=== PATIENT | male | born 1945 | race Caucasian/White ===

== ENCOUNTER → 2017-06-16 | Outpatient (CLI) | payer OTHER ==
[~2017-06-16] MED LIST: CALC1TAB25 PO; CIPR250T3 PO; CRS/10 PO; GLC/500 PO; OXYC7.5T65 PO; PHEN-775 PO; PRLSR20 PO; RIVA1TAB4 PO; SLIPPERY ELM PO; SULF800T23 PO; TAMS0.4C38 PO; XRL15 PO
--- NOTE | 2017-06-16 16:32 | DIAGNOSTIC IMAGING REPORT ---
KUB CLINICAL HISTORY: 71 years-old Male presenting with CALCULUS OF KIDNEY, left flank pain. TECHNIQUE: Single supine view of the abdomen was obtained. COMPARISON: None. FINDINGS: No convincing evidence of calcifications project over the renal collecting systems or ureters, limited by bowel gas and residual dense material in the colon. Few phleboliths noted in the left hemipelvis. Mild gaseous distention of small bowel in the epigastrium and left mid abdomen. No free evidence of bowel obstruction. No evidence of free intraperitoneal gas, pneumatosis, or portal venous gas. Osseous structures normal. IMPRESSION: 1. No convincing evidence of nephrolithiasis. If there is continuing clinical concern, further evaluation with CT could be obtained. 2. Mild gaseous distention of small bowel in the left upper quadrant. No jonathon evidence of bowel obstruction. Electronically signed by: Gordo Schwartz M.D. 06/16/2017 4:31 PM Dictated Date/Time: 06/16/2017 4:28 PM
== END | disposition home or self-care (01) ==
LOC: C.RAD 16:05
PROVIDERS: ATTEND Urology
DX: N20.0 Calculus of kidney (principal)

== ENCOUNTER → 2017-06-17 | Outpatient (CLI) | payer OTHER ==
--- NOTE | 2017-06-17 11:10 | DIAGNOSTIC IMAGING REPORT ---
RENAL ULTRASOUND HISTORY: Kidney stones. Left flank pain. COMPARISON: KUB 06/16/2017. FINDINGS: Right kidney: 11.8 cm. No hydronephrosis. Mild cortical thinning, likely age-related. A 1 cm cyst within the interpolar region. Left kidney: 11.9 cm. Mild to moderate hydronephrosis. There is a 7 mm echogenic focus near the left ureteropelvic junction. This is suboptimally assessed due to the overlying bowel gas but could represent an obstructing stone. Bladder: No bladder wall thickening. The left ureteral jet was not identified. IMPRESSION: 1. Mild to moderate left-sided hydronephrosis. A 7 mm echogenic focus near the left ureteropelvic junction. This is suboptimally assessed due to overlying bowel gas but could represent an obstructing stone. 2. A 1 cm right renal cyst. Electronically signed by: Jose Eduardo Contreras M.D. 06/17/2017 11:09 AM Dictated Date/Time: 06/17/2017 11:06 AM
== END | disposition home or self-care (01) ==
LOC: C.ULTRBC 10:01
PROVIDERS: ATTEND Urology
DX: N20.0 Calculus of kidney (principal); N13.30 Unspecified hydronephrosis; N28.1 Cyst of kidney, acquired

== ENCOUNTER 2017-06-18 09:16 | Day surgery (SDC) | payer OTHER ==
[2017-06-17 14:27] VITALS: BMI 29.0
[~2017-06-18] VITALS: Ht 172.7 cm; Wt 87.3 kg
[~2017-06-18 09:16] MED LIST changes: -CIPR250T3 PO; +CIPROFLOXACIN / D5W 400 MG IV SCH; +CIPROFLOXACIN 200MG / D5W IV SCH; +PATIENT'S ALLERGY INFO NEEDS ENTERED SCH; -PHEN-775 PO; -RIVA1TAB4 PO; +SODIUM CHLORIDE 0.9% 1000ML 1,000 ML IV SCH; -SULF800T23 PO; -TAMS0.4C38 PO; -XRL15 PO
[2017-06-18] MEDS ORDERED: TAMS0.4C38 PO (09:35)
[2017-06-18 09:36] VITALS: BP 146/95; PULSE 103; TEMP 36.8; O2SAT 96; Ht 172.7 cm; Wt 87.3 kg
--- NOTE | 2017-06-18 09:36 | History & Physical Bridge Note ---
H&P Re-Evaluation Bridge Note: I have examined the patient, reviewed the History & Physical and in the interval since the performance of the History & Physical I have noted the following changes of clinical significance: No changes noted Suspected left ureteral calculus/obstruction. Plan for cystoscopy, ureteroscopy /possible laser litho, stent.
[2017-06-18] MEDS ORDERED: FENTANYL CITRATE INJ 50 MCG/1 ML 2 ML VIAL IV PRN (09:45)
[2017-06-18] MEDS ORDERED: EpHEDrine SULFATE INJ 50 MG/ML AMP IV PRN (09:45)
[2017-06-18] MEDS ORDERED: ATROPINE SULFATE 0.1 MG/ML 5ML SYR IV PRN (09:45)
[2017-06-18] MEDS ORDERED: ONDANSETRON INJ 2 MG/ML 2 ML VIAL IV PRN (09:45)
[2017-06-18] MEDS ORDERED: CONRAY 30% 150ML BOTTLE ONE (10:33)
[2017-06-18] MEDS ORDERED: MIDAZOLAM HCL 1 MG/ML 2ML VIAL ONE (11:08)
[2017-06-18] MEDS ORDERED: VASOPRESSIN 20 UNIT/ML VIAL ONE (11:08)
[2017-06-18] MEDS ORDERED: FENTANYL CITRATE INJ 50 MCG/1 ML 2 ML VIAL ONE (11:08)
[2017-06-18] MEDS ORDERED: PROPOFOL IV EMULSION 10 MG/ML 20 ML VIAL IV ONE (11:08)
[2017-06-18] MEDS ORDERED: PHENYLEPHRINE 100MCG/ML 5ML SYR ONE (11:08)
[2017-06-18] MEDS ORDERED: LIDOCAINE HCL 2% 2 ML VIAL (20MG/ML) ONE (11:08)
[2017-06-18] MEDS ORDERED: ESMOLOL HCL 10 MG/ML 10 ML VIAL ONE (11:10)
[2017-06-18] MEDS ORDERED: SULF800T23 PO (11:16)
[2017-06-18] MEDS ORDERED: PHEN-775 PO (11:16)
[2017-06-18] MEDS ORDERED: OXYC7.5T65 PO (11:16)
[2017-06-18] MEDS ORDERED: SODIUM CHLORIDE 0.9% 1000ML 1,000 ML IV SCH (11:16)
--- NOTE | 2017-06-18 11:16 | Discharge Instructions ---
Discharge Instructions Date of Service Jun 18, 2017. Admission Reason for Admission: Stones Discharge Discharge Diagnosis / Problem: stone Discharge Goals Goal(s): Decrease discomfort, Increase independence, Improve disease control, Prevent Disease Progression Activity Recommendations Activity Limitations: resume your previous activity Lifting Limitations: none Exercise/Sports Limitations: none May Resume Sexual Activity: when tolerated Shower/Bathe: no limitations Driving or Machine Use: resume 1 day after discharge . Instructions / Follow-Up Instructions / Follow-Up Please keep your previously scheduled follow-up appointment for stent removal Discharge Diet Recommended Diet: Regular Diet Pending Studies Studies pending at discharge: no Medical Emergencies . Who to Call and When: Medical Emergencies: If at any time you feel your situation is an emergency, please call 911 immediately. . Non-Emergent Contact Non-Emergency issues call your: Urologist Call Non-Emergent contact if: you have a fever, temperature is above 101.5, your pain is not controlled, your pain is worsening . . "Provider Documentation" section prepared by Shadi Rod. . VTE Core Measure Inpt VTE Proph given/why not?: Treatment not indicated
--- NOTE | 2017-06-18 11:22 | [facility] Operative Report ---
Operative Report Operative Date Jun 18, 2017. Pre-Operative Diagnosis Left hydronephrosis;left ureteral stone Post-Operative Diagnosis Left hydronephrosis: Left ureteral stone Procedure(s) Performed Cystoscopy, left ureteroscopy, left laser lithotripsy, left ureteral stent Surgeon Prema Boyer Toe Puller Surgeon(s) non Estimated Blood Loss 2 mL Findings Left distal ureteral calculus Drains [id number] Anesthesia Gen. Complication(s) None Disposition Recovery Room / PACU (stable) Indications Symptomatically ureteral stone with renal failure and hydronephrosis Description of Procedure Clemente Clarke was identified in the preoperative holding area appropriate informed consents were reviewed and completed and the patient was transported to the operating suite. Upon arrival he received appropriate preoperative antibiotics in the form of ciprofloxacin. Adequate general anesthesia was achieved, the patient was placed in dorsal lithotomy position where he was sterilely prepped and draped in standard fashion. Beginning the procedure by passing a 22 Nigerien cystoscope with 30 lens. He was noted to have no urethral strictures but a moderately enlarged prostate. Full inspection of the bladder was carried out, no lesions or stones were identified. Ureteral orifices weren' t orthotopic position. I turned my attention to the left ureteral orifice. I passed a 10 Nigerien double -lumen catheter and a sensor wire. There was moderate resistance in the extreme distal ureter to the passage of the wire however I was able to manipulate this beyond this restriction. Before advancing the 10 Nigerien double- lumen catheter I performed a retrograde pyelogram identifying hydronephrosis extending to the level of the bladder. There were no radio opaque stones visualized. I then passed a second wire through the second port of the double- lumen catheter. Utilizing one wire as a safety wire advanced the flexible ureteroscope over the other wire. A full renoscopy was carried out. There were no stones visualized within the kidney. I performed a careful exit ureteroscopy. I did counter stone in the extreme distal ureter. There was mild inflammation the ureter no other evidence of stones or trauma. I reentered the bladder with a semirigid ureteroscope and guided this into the distal left ureter. A yellow-appearing stone was seen distal ureter. I passed a 400 laser fiber and fragment of the stone. I irrigated his medications out of the ureter is possible. I thought I saw small piece move retrograde towards the kidney. Chased after this with the scope and I was able to advance my scope to the level of the UPJ. I could not see the stone at that level. I'm uncertain of this piece to truly move into the kidney or not there is a possibility for small fragments within the kidney. As I withdrew the scope I confirmed no other stones within the ureter. Utilizing the existing safety wire I placed a 6 Nigerien by 26 synovator double-J ureteral stent. There is a good curl within the kidney as well as the bladder. The bladder was decompressed and the case concluded. Patient was extubated and taken to the PACU in stable condition. I attest to the content of the Intraoperative Record and any orders documented therein. Any exceptions are noted below.
--- NOTE | 2017-06-18 11:22 | DIAGNOSTIC IMAGING REPORT ---
INTRAOPERATIVE RADIOGRAPH CLINICAL HISTORY: Left-sided lithotripsy and stent placement. Fluoroscopy time: 26 seconds. FINDINGS: 4 spot fluoroscopic views of the left abdomen from a ureteral stent placement procedure are presented. Correlation is made with renal ultrasound dated 06/17/2017. Left-sided hydronephrosis is observed. The final image shows the proximal end of a left ureteral stent being deployed. IMPRESSION: Intraoperative images from a left ureteral lithotripsy procedure and stent placement. See operative report for detailed findings. Electronically signed by: Jefferson Haney M.D. 06/18/2017 11:21 AM Dictated Date/Time: 06/18/2017 11:20 AM
[2017-06-18] MEDS ORDERED: OXYCODONE/ACETAMINOPHEN 5-325 TAB PO PRN ×2 (11:30)
[2017-06-18 12:05] VITALS: BP 147/88; PULSE 95; TEMP 36.8; O2SAT 96
[2017-06-18 12:35] VITALS: BP 158/97; PULSE 104; O2SAT 96
--- NOTE | 2017-06-18 12:53 | Anesthesiology Progress Note ---
Anesthesia Post Op Note Date & Time Jun 18, 2017 at 12:53 Vital Signs Pain Intensity: 0 Vital Signs Past 12 Hours Date Time Temp Pulse Resp B/P (MAP) Pulse Ox O2 Delivery O2 Flow Rate FiO2 06/18/17 12:35 104 16 158/97 96 Room Air 06/18/17 12:05 36.8 95 16 147/88 96 Room Air 06/18/17 12:00 92 13 141/90 96 Room Air 06/18/17 11:50 36.5 90 14 142/92 97 Room Air 06/18/17 11:40 90 20 146/89 100 Oxymask 3 06/18/17 11:30 100 16 137/89 99 Oxymask 10 06/18/17 11:21 36.4 94 16 131/91 97 Oxymask 10 06/18/17 09:36 36.8 103 20 146/95 (112) 96 Room Air Notes Mental Status: alert / awake / arousable, participated in evaluation Pt Amnestic to Procedure: Yes Nausea / Vomiting: adequately controlled Pain: adequately controlled Airway Patency, RR, SpO2: stable & adequate BP & HR: stable & adequate Hydration State: stable & adequate Anesthetic Complications: no major complications apparent
[2017-06-18 13:06] VITALS: BP 159/95; PULSE 105; O2SAT 98
[2017-06-18 13:35] VITALS: BP 159/95; PULSE 115; TEMP 36.3; O2SAT 95
[2017-06-26] MEDS ORDERED: XRL15 PO (10:01)
[2017-06-26] MEDS ORDERED: CIPR250T3 PO (10:01)
[2017-06-26] MEDS ORDERED: RIVA1TAB4 PO (10:01)
== END 2017-06-18 12:57 | disposition home or self-care (01) ==
LOC: C.ACU 09:16
PROVIDERS: ATTEND Urology
DX: N13.2 Hydronephrosis with renal and ureteral calculous obstruction (principal); Z85.828 Personal history of other malignant neoplasm of skin; Z80.3 Family history of malignant neoplasm of breast; Z82.49 Family history of ischemic heart disease and other diseases of the circulatory system; Z83.3 Family history of diabetes mellitus; Z84.1 Family history of disorders of kidney and ureter; E11.9 Type 2 diabetes mellitus without complications; K21.9 Gastro-esophageal reflux disease without esophagitis; K44.9 Diaphragmatic hernia without obstruction or gangrene; Z90.5 Acquired absence of kidney; Z87.442 Personal history of urinary calculi; E78.00 Pure hypercholesterolemia, unspecified

== ENCOUNTER 2017-06-24 01:04 | Inpatient (IN) | payer OTHER ==
[~2017-06-24] VITALS: Ht 172.7 cm; Wt 83.7 kg
[2017-06-24] VITALS (8 sets, daily range): BP systolic 126–154; BP diastolic 75–96; PULSE 92–130; TEMP 36.5–37.7; O2SAT 93–96; Ht 172.7 cm; Wt 83.7 kg
[~2017-06-24 01:04] MED LIST changes: -CIPROFLOXACIN / D5W 400 MG IV SCH; -CIPROFLOXACIN 200MG / D5W IV SCH; -PATIENT'S ALLERGY INFO NEEDS ENTERED SCH; +PHEN-775 PO; -SODIUM CHLORIDE 0.9% 1000ML 1,000 ML IV SCH; +SULF800T23 PO; +TAMS0.4C38 PO
[2017-06-24] MEDS ORDERED: ALUMINUM/MAGNESIUM/SIMETH (MAALOX MAX) 30 ML UDC PO PRN (03:15)
[2017-06-24] MEDS ORDERED: POLYETHYLENE (MIRALAX) 17 GM PACK PO PRN (03:15)
[2017-06-24] MEDS ORDERED: MAGNESIUM HYDROXIDE SUSP 30 ML UDC PO PRN (03:15)
--- NOTE | 2017-06-24 03:25 | History and Physical ---
History & Physical Date & Time of Service: Jun 24, 2017 at 03:21 Chief Complaint: Urosepsis Primary Care Physician: Carlos Reaves D.O. History of Present Illness Source: patient, spouse Mr Clarke is a 71 yo diabetic male, with hx of kidney stones, most recently on June 18, and he is s/p lithotripsy w/Dr Boyer, done in the surgical center. He went home from his procedure and took 3 doses of the Bactrim he was prescribed, and then started feeling chills and fevers. His highest temp was 102F. He hasn't been eating well over the last two days either. He presented to [facility]. At [place], he was found to be tachycardic. He had blood cultures drawn and was placed on Rocephin. He was given IV fluids. He was transferred here and arrived 3AM. Past Medical/Surgical History PMHx: Ureterlithiasis Urinary calculi Renal failure Renal colic Diverticulitis DM Hx of kidney stones PSHx: Colon resection Cystoscopy Left eyelid to BCC Multiple negative prostate biopsies Family History No pertinent FHx Social History Smoking Status: Never Smoker Smokeless Tobacco Use: No Alcohol Use: none Drug Use: none Marital Status: Housing status: lives with family Occupational Status: retired Immunizations History of Influenza Vaccine: Unknown History of Tetanus Vaccine?: Unknown History of Pneumococcal: Unknown History of Hepatitis B Vaccine: Unknown Multi-Drug Resistant Organisms History of MDRO: No Allergies Coded Allergies: No Known Allergies (Unverified , 06/18/17) Home Medications Scheduled Calcium W/ Magnesium (Calcium Magnesium 750), 1 TAB PO QAM Metformin Hcl (Glucophage), 500 MG PO QPM Omeprazole (Prilosec), 20 MG PO PRN Phenazopyridine Hcl (Pyridium), 200 MG PO BID Rosuvastatin Calcium (Crestor), 10 MG PO HS Sulfamethoxazole-Trimethoprim (Bactrim Ds 800MG/160MG), 1 TAB PO BID Tamsulosin Hcl (Flomax), 0.4 MG PO DAILY [Slippery Elm], 1 TAB PO PRN Scheduled PRN Oxycodone/Acetaminophen 7.5MG/325MG (Percocet 7.5MG/325MG), 1 TAB PO Q4H PRN for Pain Review of Systems See HPI for pertinent positives & negatives. A total of 10 systems reviewed and were otherwise negative. Physical Exam Vital Signs VS PER EMR General Appearance: WD/WN, no apparent distress Head: normocephalic, atraumatic Eyes: normal inspection ENT: hearing grossly normal Neck: supple, no JVD Respiratory/Chest: lungs clear, normal breath sounds, no respiratory distress Cardiovascular: no murmur, normal peripheral pulses, + tachycardia Abdomen/GI: normal bowel sounds, non tender, soft Back: no CVA tenderness, no muscle spasm Extremities/Musculoskelatal: no calf tenderness, no pedal edema Neurologic/Psych: alert, normal mood/affect, normal reflexes Skin: + pertinent finding (some blotches of erythema to anterior chest) Diagnostics Laboratory Results LABS IN [place] WBC 8.0 w/left shift Cr 1.4, prior to IV fluids Hb 16.3 / Hct 47 Lactic acid 1.20 URINALYSIS: Negative except for 2+ blood, few bacteria and few epithelial cells EKG Sinus tach w/PVCs, 120 bpm Impression Assessment and Plan 71 yo M with urosepsis, s/p L-sided lithotripsy and stent placement for a kidney stone Urosepsis - Blood cx obtained in [place] - Started on Rocephin initially, will change to Zosyn - Received fluid resuscitation, continue maintenance IV fluids - Consult Urology - CT w/out contrast - Repeat labs DM - Hold Metformin for now GERD - Hold Prilosec Hyperlipidemia - Hold Crestor VTE: SCDs. Will hold chemical anticoagulation for now in case of further need for procedure Code Status: Full Dispo: Admitted to Tele Attending Addendum: I have physically seen and examined this patient, have supervised the medical residents activities, and agree with the H&P as noted above with the following exceptions: NONE The patient is awake, well-developed and adequately nourished, alert and oriented 3, normocephalic and atraumatic, lying in bed and in no acute distress. HEENT--PERRL, EOMI, mucous membranes and oropharynx dry. Neck--supple, no JVD or bruits, thyroid normal, trachea midline, no adenopathy. Heart--normal S1 and S2, no extra beats, no murmurs, rubs or gallops. Lungs--clear bilaterally with good air movement, no respiratory distress, no accessory muscle use. Abdomen--normal bowel sounds and soft, nontender and nondistended, no hernias or masses, no organomegaly. Extremities--no cyanosis, clubbing or edema. There are good distal pulses b/l. Dermatologic--normal skin turgor, normal color, warm and dry, no abnormal lymph nodes, no rash. Neurologic--cranial nerves II through XII grossly intact, motor and sensory examination normal. Rheumatologic--normal range of motion, nontender, muscles and joints. Psychiatric--normal affect. Assessment and Plan: 1. Urosepsis/sinus tachycardia/dehydration/status post laser lithotripsy for left ureteral stones--patient is admitted to the telemetry unit. Place on Zosyn IV due to recent health care treatment. Follow blood cultures from [facility]. CT of abdomen and pelvis without contrast to assess for presence of stones. Follow serial laboratories CBC with differential, PRP and magnesium levels. Patient will be nothing by mouth status, and will therefore hold metformin, Prilosec and Crestor. Place on famotidine 20 mg IV every 12 hours. Consult urology. Level of Care Telemetry Advanced Directives Existing Advance Directive: No Existing Living Will: No Existing Power of Parent Coach: No Resuscitation Status FULL RESUSCITATION VTE Prophylaxis VTE Risk Assessment Done? Y/N: Yes Risk Level: Moderate Given or contraindicated: SCD's Social Service Consult None Apply Resident Tracking Resident Involvement: Resident Care Provided Care Provided: Adult Hospital Medicine
[2017-06-24] MEDS ORDERED: PATIENT'S HEIGHT AND/OR WEIGHT NEEDED SCH (03:30)
[2017-06-24] MEDS ORDERED: PIPERACILL/TAZOBAC IV 4.5 GM in DEXTROSE 5% 100ML IV STA (03:52)
[2017-06-24 03:56] LABS: BASO % 0.3 %; BASO ABS # 0.03 K/uL (0-0.2); EOS % 0.1 %; HEMATOCRIT 41.5 % (42-52); IG% 0.7 %; LYMPH ABS # 0.62 K/uL (1.2-3.4); MEAN CELL VOLUME 83.7 fL (80-100); MEAN CORPUSCULAR HEMOGLOBIN 29.6 pg (25-34); MONO % 3.3 %; NEUT % 88.6 %; PLATELET COUNT 184 K/uL (130-400); RED BLOOD COUNT 4.96 M/uL (4.7-6.1); WHITE BLOOD COUNT 8.86 K/uL (4.8-10.8)
[2017-06-24] MEDS ORDERED: PIPERACILL/TAZOBAC CONSULT ACTIVE PRN (04:00)
[2017-06-24 04:11] LABS: COMPLETE YES; MEAN CORPUSCULAR HGB CONC 35.4 g/dl (32-36)
[2017-06-24 04:12] LABS: PROTHROMBIN TIME (PATIENT) 11.1 SECONDS (9.0-12.0)
[2017-06-24] MEDS: NSS + 20MEQ KCL 1000ML 1,000 ML IV SCH ×2 (04:13→10:09)
[2017-06-24 04:19] LABS: BLOOD UREA NITROGEN 13 mg/dl (7-18); BUN/CREATININE RATIO 11.4 (10-20); CALCIUM 7.8 mg/dl (8.5-10.1); CARBON DIOXIDE 20 mmol/L (21-32); CHLORIDE 113 mmol/L (98-107); GLUCOSE 158 mg/dl (70-99); POTASSIUM 3.8 mmol/L (3.5-5.1); SODIUM 141 mmol/L (136-145)
[2017-06-24] MEDS ORDERED: PIPERACILL/TAZOBAC IV 4.5 GM in DEXTROSE 5% 100ML 100 ML IV SCH (06:00)
--- NOTE | 2017-06-24 06:02 | Urology Consultation ---
History General Date of Service: Jun 24, 2017. Primary Care Physician: Carlos Reaves D.O. Pt seen a urologist before?: Yes If yes, why?: nephrolithiasis History of Present Illness Patient's a 71-year-old white male who is status post left ureteroscopy laser lithotripsy and stent for ureteral calculus. He developed a fever of 102 and was feeling poorly so he went to the [facility] emergency room. There he was found to be tachycardic. He was transferred to our facility for further care. Currently he says since getting some IV fluids starting on his antibiotic he feels better. He has no nausea or vomiting. He denies any flank pain with the exception of the usual stent discomfort. Laboratory Last Vital Signs Documentation Date Time Temp Pulse Resp B/P (MAP) Pulse Ox O2 Delivery O2 Flow Rate FiO2 06/24/17 03:00 37.7 123 14 139/93 96 Room Air Last 24 Hours Test 06/24/17 03:41 06/24/17 05:57 White Blood Count 8.86 K/uL Red Blood Count 4.96 M/uL Hemoglobin 14.7 g/dL Hematocrit 41.5 % Mean Corpuscular Volume 83.7 fL Mean Corpuscular Hemoglobin 29.6 pg Mean Corpuscular Hemoglobin Concent 35.4 g/dl Platelet Count 184 K/uL Mean Platelet Volume 9.0 fL Neutrophils (%) (Auto) 88.6 % Lymphocytes (%) (Auto) 7.0 % Monocytes (%) (Auto) 3.3 % Eosinophils (%) (Auto) 0.1 % Basophils (%) (Auto) 0.3 % Neutrophils # (Auto) 7.85 K/uL Lymphocytes # (Auto) 0.62 K/uL Monocytes # (Auto) 0.29 K/uL Eosinophils # (Auto) 0.01 K/uL Basophils # (Auto) 0.03 K/uL RDW Standard Deviation 38.7 fL RDW Coefficient of Variation 12.9 % Immature Granulocyte % (Auto) 0.7 % Immature Granulocyte # (Auto) 0.06 K/uL Prothrombin Time 11.1 SECONDS Prothromb Time International Ratio 1.0 Sodium Level 141 mmol/L Potassium Level 3.8 mmol/L Chloride Level 113 mmol/L Carbon Dioxide Level 20 mmol/L Anion Gap 8.0 mmol/L Blood Urea Nitrogen 13 mg/dl Creatinine 1.10 mg/dl Estimated GFR () 77.9 Estimated GFR (Non- 67.2 BUN/Creatinine Ratio 11.4 Random Glucose 158 mg/dl Calcium Level 7.8 mg/dl Labs were reviewed and are within normal limits unless listed below. Labs are available in the chart and at [facility] Social History Hx Tobacco Use In Past Year?: No Marital status: Housing status: lives with family Occupation status: retired Immunizations History of Influenza Vaccine: Unknown History of Tetanus Vaccine?: Unknown History of Pneumococcal: Unknown History of Hepatitis B Vaccine: Unknown History of MDRO No Allergies Coded Allergies: No Known Allergies (Unverified , 06/18/17) Medications Home Medications: Home Meds and Scripts Medications Dose Route/Sig Max Daily Dose Days Date Category Dose Instructions Pyridium (Phenazopyridine Hcl) 200 Mg Tab 200 Mg PO BID 06/18/17 Rx Bactrim Ds 800MG/160MG (Sulfamethoxazole-Trimethoprim) 1 Tab Tab 1 Tab PO BID 06/18/17 Rx Percocet 7.5MG/325MG (Oxycodone/Acetaminophen) Tab 1 Tab PO Q4H PRN 06/18/17 Rx PRN PAIN Flomax (Tamsulosin Hcl) 0.4 Mg Cap 0.4 Mg PO DAILY 06/18/17 Reported [Slippery Elm] 1 Tab PO PRN 06/17/17 Reported Calcium Magnesium 750 (Calcium W/ Magnesium) 1 Tab Tab 1 Tab PO QAM 06/17/17 Reported Prilosec (Omeprazole) 20 Mg Capcr 20 Mg PO PRN 06/17/17 Reported Glucophage (Metformin Hcl) 500 Mg Tab 500 Mg PO QPM 06/17/17 Reported Crestor (Rosuvastatin Calcium) 10 Mg Tab 10 Mg PO HS 06/17/17 Reported Inpatient Medications: Current Inpatient Medications Medications (Trade) Dose Ordered Sig/Aniyah Route Start Time Stop Time Status Last Admin Dose Admin Potassium Chloride/Sodium Chloride 1,000 ml @ 125 mls/hr Q8H IV 06/24/17 03:12 06/24/17 19:11 06/24/17 04:13 125 MLS/HR Acetaminophen (Tylenol Tab) 650 mg Q4H PRN PO 06/24/17 03:15 07/24/17 03:14 Al Hydrox/Mg Hydrox/Simethicone (Maalox Max Susp) 15 ml Q4H PRN PO 06/24/17 03:15 07/24/17 03:14 Magnesium Hydroxide (Milk Of Magnesia Susp) 30 ml Q12H PRN PO 06/24/17 03:15 07/24/17 03:14 Ondansetron HCl (Zofran Inj) 4 mg Q6H PRN IV 06/24/17 03:15 07/24/17 03:14 Polyethylene (Miralax Powder Packet) 17 gm DAILY PRN PO 06/24/17 03:15 07/24/17 03:14 Piperacillin Sod/ Tazobactam Sod 3.375 gm/Dextrose 115 ml @ 28.75 mls/ hr Q8H IV 06/24/17 10:00 07/04/17 09:59 Piperacillin Sod/ Tazobactam Sod (Consult) 1 ea UD PRN N/A 06/24/17 04:00 07/24/17 03:59 Review of Systems Review of Systems Additional Comments: Review of systems were reviewed from his admitting history and physical and prior records Physical Exam Vital Signs: Vital Signs Past 12 Hours Date Time Temp Pulse Resp B/P (MAP) Pulse Ox O2 Delivery O2 Flow Rate FiO2 06/24/17 03:00 37.7 123 14 139/93 96 Room Air Physical Exam: General Appearance: WD/WN, no apparent distress ENT: hearing grossly normal Neck: supple Respiratory/Chest: normal breath sounds, no respiratory distress Cardiovascular: regular rate, rhythm Extremities: no calf tenderness Neurologic/Psychiatric: alert, normal mood/affect, oriented x 3 Skin: + diaphoresis Assessment & Plan Assessment & Plan Assessment Urosepsis I reviewed the patient's CT that he had here the stent appears to be positioned adequately. At this point he does not need any surgical intervention will need intravenous antibiotics until the urine cultures are back as well as supportive care.
[2017-06-24] MEDS: INSULIN ASPART 100 UNITS/ML 3 ML PEN SC SCH ×4 (07:00→21:00)
[2017-06-24] MEDS ORDERED: DEXTROSE 50% 50 ML SYR IV PRN (07:00)
[2017-06-24] MEDS ORDERED: GLUCOSE 10 TABS/TUBE PO PRN (07:00)
[2017-06-24] MEDS ORDERED: GLUCAGON FOR INJ 1 MG VIAL SQ PRN (07:00)
[2017-06-24] MEDS ORDERED: GLUCOSE 40% GEL 15 GM TUBE PO PRN (07:00)
--- NOTE | 2017-06-24 07:06 | DIAGNOSTIC IMAGING REPORT ---
ABD/PELVIS WITHOUT FOR STONE CT DOSE: 1283.68 mGy.cm HISTORY: Pain. Fever. sepsis s/p L stent s/p Lithotripsy TECHNIQUE: Multiaxial CT images of the abdomen and pelvis were performed without the use of intravenous and oral contrast according to the standard department stone protocol. A dose lowering technique was utilized adhering to the principles of ALARA. COMPARISON STUDY: None. FINDINGS: Minimal atelectasis left base. Configuration of liver spleen and pancreas is unremarkable. No evidence for gallbladder distention. Left ureteral stent in good position. Moderate fullness left and to a lesser extent right renal pelvis. 1 mm calcification immediately adjacent to the stent mid left ureter transaxial image 101. No significant perirenal infiltrative or collection-type change. Nonobstructive bowel pattern. Prior rectosigmoid anastomosis. Bladder is midline. Scattered colonic diverticulosis with no evidence for diverticulitis. IMPRESSION: 1. Left ureteral stent in good position. 2. Probable 1 mm calculus mid left ureter. 3. No evidence for abscess or collection. 4. Nonobstructive bowel pattern. The above report was generated using voice recognition software. It may contain grammatical, syntax or spelling errors. Electronically signed by: Vazquez Garcia M.D. 06/24/2017 7:04 AM Dictated Date/Time: 06/24/2017 7:01 AM
--- NOTE | 2017-06-24 07:23 | Medical Student: [facility] ---
Med Student Progress Note Date of Service Jun 24, 2017. Subjective Pt evaluation today including: conversation w/ patient, physical exam, lab review, review of studies Voiding: no voiding problems Patient was examined sitting up in bed. He has 6/10 lower abdominal/upper pelvic pain L>R and feels sweaty. The pain is made worse when he presses on it and when he moves around. He also reports that he has not been eating well for the past few days. No issues with urination. Denies headache, dizziness, chest pain, shortness of breath, nausea, vomiting, diarrhea or constipation, calf pain. Review of Systems Constitutional: + chills, + sweats, No fever Eyes: No worsening of vision, No diplopia ENT: No hearing loss, No sore throat, No trouble swallowing Respiratory: No cough, No wheezing, No shortness of breath Cardiac: No chest pain, No palpitations Abdomen: + nausea, No pain, No vomiting, No diarrhea Musculoskeletal: No joint pain, No muscle pain, No calf pain Male : No dysuria, No incontinence Neurologic: No paralysis, No numbness/tingling Heme: No abnormal bleeding/bruising, No clotting problems Skin: No rash, No itch Objective Vital Signs Date Time Temp Pulse Resp B/P (MAP) Pulse Ox O2 Delivery O2 Flow Rate FiO2 06/24/17 03:00 37.7 123 14 139/93 96 Room Air Physical Exam General Appearance: WD/WN, + moderate distress (sweaty, tired-appearing laying in bed) Eyes: bilateral eyes normal inspection, bilateral eyes PERRL, bilateral eyes EOMI ENT: normal ENT inspection, hearing grossly normal, pharynx normal Neck: supple, no adenopathy, no carotid bruits Respiratory/Chest: lungs clear, normal breath sounds, no respiratory distress, no accessory muscle use Cardiovascular: no gallop, no murmur, + tachycardia Abdomen: normal bowel sounds, + tenderness (lower abdomen and pelvis) Extremities: no calf tenderness, normal capillary refill Neurologic/Psychiatric: no motor/sensory deficits, alert, oriented x 3 Skin: normal color, no rash, + diaphoresis Laboratory Results Last 24 Hours Test 06/24/17 03:41 06/24/17 05:57 White Blood Count 8.86 K/uL Red Blood Count 4.96 M/uL Hemoglobin 14.7 g/dL Hematocrit 41.5 % Mean Corpuscular Volume 83.7 fL Mean Corpuscular Hemoglobin 29.6 pg Mean Corpuscular Hemoglobin Concent 35.4 g/dl Platelet Count 184 K/uL Mean Platelet Volume 9.0 fL Neutrophils (%) (Auto) 88.6 % Lymphocytes (%) (Auto) 7.0 % Monocytes (%) (Auto) 3.3 % Eosinophils (%) (Auto) 0.1 % Basophils (%) (Auto) 0.3 % Neutrophils # (Auto) 7.85 K/uL Lymphocytes # (Auto) 0.62 K/uL Monocytes # (Auto) 0.29 K/uL Eosinophils # (Auto) 0.01 K/uL Basophils # (Auto) 0.03 K/uL RDW Standard Deviation 38.7 fL RDW Coefficient of Variation 12.9 % Immature Granulocyte % (Auto) 0.7 % Immature Granulocyte # (Auto) 0.06 K/uL Prothrombin Time 11.1 SECONDS Prothromb Time International Ratio 1.0 Sodium Level 141 mmol/L Potassium Level 3.8 mmol/L Chloride Level 113 mmol/L Carbon Dioxide Level 20 mmol/L Anion Gap 8.0 mmol/L Blood Urea Nitrogen 13 mg/dl Creatinine 1.10 mg/dl Estimated GFR () 77.9 Estimated GFR (Non- 67.2 BUN/Creatinine Ratio 11.4 Random Glucose 158 mg/dl Calcium Level 7.8 mg/dl Assessment and Plan Assessment and Plan: This is a 71yo male with infection, s/p L-sided lithotripsy and stent placement for a kidney stone. He remains tachycardic with low-grade fever. The differential includes infection (UTI, pneumonia, prostatitis, diverticulitis), PE, dehydration, 1. UTI s/p L-sided lithotripsy and stent placement for a kidney stone -blood cx collected in [place], results pending -CT abd/pelvis completed, results showing 1mm stone in left ureter ureter -IV piperacillin/tazobactam empiric treatment pending culture results -IV nss w/ 20meq KCl @ 100mls/hr to avoid fluid overload, monitor fluid status -phenazopyridine 200mg PO BID -PRN Tylenol 650mg PO q4h prn mild pain -PRN oxycodone 5mg PO q4h prn mod pain -PRN morphine 2mg IV q2h prn severe pain -PRN zofran 4g IV prn nausea -urology consult completed, will continue with medical management -AM CBC w/ diff -AM BMP 2. T2DM -insulin basal-bolus on sliding scale -HOLD home metformin 500mg 3. GERD -continue omeprazole 20mg PO daily 4. Hyperlipidemia -continue rosuvastatin 10mg PO daily 5. FEN/GI -HOLD calcium w/ magnesium 750mg PO daily -consistent carb diet -Boost shake supplementation 6. DVT prophylaxis -lovenox 40mg s.c. daily -SCD 7. Disposition -Location: home -Date: TBD Continued [facility] stay due to: fever, abnormal vital signs, multiple IV medications needed Discharge planning: home
[2017-06-24] MEDS: TAMSULOSIN HCL 0.4 MG CAP PO SCH (08:09)
[2017-06-24] MEDS: PHENAZOPYRIDINE HCL 200 MG TAB PO SCH ×2 (08:09→20:01)
[2017-06-24] MEDS ORDERED: PANTOprazole SOD 40 MG TAB PO PRN (09:00)
[2017-06-24] MEDS: PIPERACILL/TAZOBAC IV 3.375 GM in DEXTROSE 5% 100ML 100 ML IV SCH ×2 (10:08→18:54)
[2017-06-24] MEDS: ACETAMINOPHEN 325 MG TAB PO PRN (10:28)
--- NOTE | 2017-06-24 12:27 | Family Medicine Progress Note ---
Progress Note Date of Service Jun 24, 2017. Subjective Pt evaluation today including: conversation w/ patient, physical exam, chart review, lab review Pain: Left flank and LLQ pain PO Intake: NPO Voiding: no incontinence Patient notes feeling better since first going to [place] States did well following left ureteral stent placement June 18, but 2 days later experienced malaise, dysuria and has had generally poor PO intake and low fluid intake No acute issues since arrival Has not eaten since arrival; is producing urine Additional Comments: A 10 point review of systems was negative unless stated above. Medications Current Inpatient Medications Medications (Trade) Dose Ordered Sig/[place] Route Start Time Stop Time Status Last Admin Dose Admin Potassium Chloride/Sodium Chloride 1,000 ml @ 200 mls/hr Q5H IV 06/24/17 03:12 06/24/17 15:11 06/24/17 10:09 200 MLS/HR Acetaminophen (Tylenol Tab) 650 mg Q4H PRN PO 06/24/17 03:15 07/24/17 03:14 06/24/17 10:28 650 MG Al Hydrox/Mg Hydrox/Simethicone (Maalox Max Susp) 15 ml Q4H PRN PO 06/24/17 03:15 07/24/17 03:14 Magnesium Hydroxide (Milk Of Magnesia Susp) 30 ml Q12H PRN PO 06/24/17 03:15 07/24/17 03:14 Ondansetron HCl (Zofran Inj) 4 mg Q6H PRN IV 06/24/17 03:15 07/24/17 03:14 Polyethylene (Miralax Powder Packet) 17 gm DAILY PRN PO 06/24/17 03:15 07/24/17 03:14 Piperacillin Sod/ Tazobactam Sod 3.375 gm/Dextrose 115 ml @ 28.75 mls/ hr Q8H IV 06/24/17 10:00 07/04/17 09:59 06/24/17 10:08 28.75 MLS/HR Piperacillin Sod/ Tazobactam Sod (Consult) 1 ea UD PRN N/A 06/24/17 04:00 07/24/17 03:59 Insulin Aspart (novoLOG ASPART) SLIDING SCALE G... ACHS SC 06/24/17 07:00 07/24/17 06:59 Glucose (Glucose 40% Gel) 15-30 GRAMS 15 GRAMS... UD PRN PO 06/24/17 07:00 07/24/17 06:59 Glucose (Glucose Chew Tab) 4-8 Tablets 4 Tabl... UD PRN PO 06/24/17 07:00 07/24/17 06:59 Dextrose (Dextrose 50% 50ML Syringe) 25-50ML OF 50% DW IV FOR... UD PRN IV 06/24/17 07:00 07/24/17 06:59 Glucagon (Glucagon Inj) 1 mg UD PRN SQ 06/24/17 07:00 07/24/17 06:59 Phenazopyridine HCl (Pyridium Tab) 200 mg BID PO 06/24/17 09:00 07/24/17 08:59 06/24/17 08:09 200 MG Rosuvastatin Calcium (Crestor Tab) 10 mg HS PO 06/24/17 21:00 07/24/17 20:59 Tamsulosin HCl (Flomax Cap) 0.4 mg DAILY PO 06/24/17 09:00 07/24/17 08:59 06/24/17 08:09 0.4 MG Miscellaneous Information (Order Awaiting Action) 1 ea QS N/A 06/24/17 08:00 07/24/17 07:59 Pantoprazole Sodium (Protonix Tab) 40 mg QAM PRN PO 06/24/17 09:00 07/24/17 08:59 Objective Vital Signs Date Time Temp Pulse Resp B/P (MAP) Pulse Ox O2 Delivery O2 Flow Rate FiO2 06/24/17 12:00 96 Room Air 06/24/17 11:08 37.4 92 20 126/75 (92) 93 Room Air 06/24/17 08:00 96 Room Air 06/24/17 08:00 36.6 130 22 149/92 (111) 96 Room Air 06/24/17 03:00 37.7 123 14 139/93 96 Room Air Physical Exam General Appearance: WD/WN, + mild distress Eyes: normal inspection, EOMI ENT: hearing grossly normal, pharynx normal Neck: supple, no adenopathy, no JVD Respiratory/Chest: chest non-tender, lungs clear, no respiratory distress Cardiovascular: no gallop, no murmur, + tachycardia Abdomen: normal bowel sounds, non tender, soft, + pertinent finding (mild L flank and LLQ tenderness without guarding/rigidity) Extremities: non-tender, no pedal edema Neurologic/Psychiatric: alert, normal mood/affect, oriented x 3 Skin: normal color, warm/dry, no rash Lymphatic: no adenopathy Laboratory Results Last 24 Hours Test 06/24/17 03:41 06/24/17 05:57 06/24/17 07:00 06/24/17 11:09 White Blood Count 8.86 K/uL Red Blood Count 4.96 M/uL Hemoglobin 14.7 g/dL Hematocrit 41.5 % Mean Corpuscular Volume 83.7 fL Mean Corpuscular Hemoglobin 29.6 pg Mean Corpuscular Hemoglobin Concent 35.4 g/dl Platelet Count 184 K/uL Mean Platelet Volume 9.0 fL Neutrophils (%) (Auto) 88.6 % Lymphocytes (%) (Auto) 7.0 % Monocytes (%) (Auto) 3.3 % Eosinophils (%) (Auto) 0.1 % Basophils (%) (Auto) 0.3 % Neutrophils # (Auto) 7.85 K/uL Lymphocytes # (Auto) 0.62 K/uL Monocytes # (Auto) 0.29 K/uL Eosinophils # (Auto) 0.01 K/uL Basophils # (Auto) 0.03 K/uL RDW Standard Deviation 38.7 fL RDW Coefficient of Variation 12.9 % Immature Granulocyte % (Auto) 0.7 % Immature Granulocyte # (Auto) 0.06 K/uL Prothrombin Time 11.1 SECONDS Prothromb Time International Ratio 1.0 Sodium Level 141 mmol/L Potassium Level 3.8 mmol/L Chloride Level 113 mmol/L Carbon Dioxide Level 20 mmol/L Anion Gap 8.0 mmol/L Blood Urea Nitrogen 13 mg/dl Creatinine 1.10 mg/dl Estimated GFR () 77.9 Estimated GFR (Non- 67.2 BUN/Creatinine Ratio 11.4 Random Glucose 158 mg/dl Calcium Level 7.8 mg/dl Hepatitis C Antibody Screen NEG Bedside Glucose 125 mg/dl 169 mg/dl Assessment and Plan 71 year old male who presented 1 week s/p cystoscopy with left-lithotrypsy and ureteral stent placement who presents to [facility] with malaise, poor appetite. In [place] the patient was tachycardic at rate of 130s. He was treated with 3 L of IV fluids. On arrival to [facility] he remains tacchycardic. Working diagnosis at this time is urinary tract infection with possible sepsis at presentation. Our plan for him is as follows: Urinary Tract Infection - Blood and urine cultures collected in [place] and Pending - Currently on IV Zosyn monotherapy Based on history, I do not see high risk features for him to be placed on Vancomycin therapy to cover for MRSA - Has gotten 3 L of NSS in [place] [facility] Here he has gotten 2 + L NSS and remains tachycardic - Urology consulted; recommendations appreciated Continue medical management - Pain management: Tylenol PRN, Oxycodone PRN and IV Morphine PRN Tachycardia - Reviewed EKG on admission; Sinus Tachycardia with premature supraventricular complexes - Hemodynamically stable - HR has not responded to > 30 ml/kg bolus over 24 hour period - Would consider alternative diagnoses to tachycardia beyond UTI +/- sepsis on admission - Given poor HR response to fluids, will do CT scan for PE at this time - Repeat EKG to ensure no evidence of Afib, or other SVT (AVRT, AVNRT) Hx of Cystoscopy ureteroscopy with Lithotripsy - Urology following - Continue Flomax - Bactrim stopped; on Zosyn for UTI treatment Type 2 Diabetes Mellitus - Hold Home meds - SSI - AC/HS accuchecks GERD - Continue Omeprazole DVT Prophylaxis - Enoxaparin 40 mg qAM - SCD - TEDs Disposition - Telemetry - OT/ PT Resident Physician Supervision Note: I interviewed and examined the patient. Discussed with Dr. Sims and agree with findings and plan as documented in the note. Any exceptions or clarifications are listed here: None Documented By: Andrei Shook feeling tired, shaky, no appetite. otherwise as above. all other ROS otherwise negative except for as above vitals noted fatigued appearing no pallor or icterus UTI w sepsis present on admission - zosyn, pending culture. stent in place so has drainage - no current interventions needed. continue abx and supportive care tachycardia - sinus tachy above what appears w sepsis. consider PE. consider treating as sinus tachy. DVT proph - lovenox Continued [facility] stay due to: abnormal vital signs, multiple IV medications needed
[2017-06-24] MEDS: OXYCODONE HCL IR 5 MG TAB (IMMEDIATE RELEASE) PO PRN (14:17)
[2017-06-24] MEDS: ONDANSETRON INJ 2 MG/ML 2 ML VIAL IV PRN ×2 (15:37→21:31)
[2017-06-24] MEDS ORDERED: NSS + 20MEQ KCL 1000ML 1,000 ML IV SCH ×2 (16:30→17:45)
[2017-06-24] MEDS ORDERED: OPTIRAY 320 IV PRN (17:30)
--- NOTE | 2017-06-24 18:18 | DIAGNOSTIC IMAGING REPORT ---
(CHEST FOR PE) ANGIO WITH CT DOSE: 480.61 mGy.cm HISTORY: 71 years-old Male presents with acute shortness of breath and chest pain. Concern for pulmonary embolus. TECHNIQUE: Multiple CTA images of the chest were obtained after the intravenous administration of 116 ml Optiray 320. Coronal and sagittal MIPS were obtained from the axial data set and were submitted for review. A dose lowering technique was utilized adhering to the principles of ALARA. COMPARISON: CT abdomen and pelvis of same day. FINDINGS: CTA: Heart is normal in size without pericardial effusion. Coronary arterial calcifications are noted. Imaged proximal great vessels are patent. There is no aortic dissection or aneurysm. There is mild degree of mixed plaquing of the aorta. There is dilation of the main pulmonary artery, 3.4 cm suggesting underlying pulmonary arterial hypertension. Bilateral pulmonary emboli are noted, notably within the proximal segmental branches of the right lower lobe extending into the subsegmental branches. Additionally, pulmonary emboli are seen within the right upper lobe are and segmental branches. Additional pulmonary emboli are seen within lobar and segmental branches of the lingula and left lower lobe. There is no evidence of associated right heart strain. CT CHEST: No thyroid nodule identified. No pathologic adenopathy by CT size criteria. There is no pneumothorax, pleural effusion or large pulmonary infarction. Linear bibasilar opacities suggest atelectasis. Central airways are patent. Low attenuating 1.4 x 0.8 cm lesion of the left adrenal gland suggests adenoma. There is a small diverticulum of the duodenum. Soft tissues are within normal limits. The bones appear intact with multilevel endplate spurring. IMPRESSION: 1. Extensive bilateral pulmonary emboli involving lobar, segmental and subsegmental branches. No associated evidence of right heart strain or large pulmonary infarction. 2. Mild dilation of the main pulmonary artery suggests underlying pulmonary arterial hypertension. The above report was generated using voice recognition software. It may contain grammatical, syntax or spelling errors. Electronically signed by: Shaka Shepard M.D. 06/24/2017 6:16 PM Dictated Date/Time: 06/24/2017 6:08 PM
--- NOTE | 2017-06-24 19:01 | Progress Note ---
Progress Note Date of Service Jun 24, 2017. Progress Note Re-assessed patient this afternoon approximately 1600 Patient continues to be tachycardic despite 5 L fluids between [facility] and [facility]. Considered possibility of PE as underlying cause of tachycardia. Patient on broad coverage with Zosyn in case of infective source not related to UTI. MRSA risk low, no indication to start MRSA coverage at this time. Repeated EKG which is unchanged and shows Sinus Tachy with premature supraventricular complexes. Persistent Tachycardia despite adequate fluid resuscitation, prompted consideration for PE: Decision made to perform CT scan chest CT for PE done at 1700: Report reviewed showing bilateral PE; diagnosis explained to patient who is aware. Plan: - D/C IVF - Start IV Heparin Standard with Bolus - U/S bilateral extremities for DVT - Will continue to monitor in telemetry overnight
[2017-06-24] MEDS ORDERED: HEPARIN IV BOLUS 6,000 UNIT in SYRINGE 0 ML IV ONE (19:30)
--- NOTE | 2017-06-24 19:47 | DIAGNOSTIC IMAGING REPORT ---
ULTRASOUND VENOUS DOPPLER LWR EXT BILA CLINICAL HISTORY: Bilateral pulmonary embolism COMPARISON STUDY: None FINDINGS: On the right, there is popliteal peroneal and posterior tibial DVT. On the left, there is popliteal and peroneal vein DVT. No thrombus is visualized within the superficial femoral or common femoral veins. IMPRESSION: Acute bilateral DVT. Electronically signed by: Audie Davidson M.D. 06/24/2017 7:46 PM Dictated Date/Time: 06/24/2017 7:44 PM
[2017-06-24] MEDS: HEPARIN 25,000 UNIT/500ML D5W 500 ML IV PRN (19:52)
[2017-06-24] MEDS: ROSUVASTATIN CALCIUM 10 MG TAB PO SCH (20:00)
[2017-06-24 20:10] LABS: BASO % 0.5 %; BASO ABS # 0.03 K/uL (0-0.2); HEMATOCRIT 45.7 % (42-52); IG% 1.8 %; LYMPH % 10.4 %; LYMPH ABS # 0.69 K/uL (1.2-3.4); MEAN CELL VOLUME 83.7 fL (80-100); MEAN CORPUSCULAR HEMOGLOBIN 29.3 pg (25-34); MEAN PLATELET VOLUME 8.7 fL (7.4-10.4); MONO % 4.5 %; NEUT % 82.8 %; PLATELET COUNT 171 K/uL (130-400); RED BLOOD COUNT 5.46 M/uL (4.7-6.1); WHITE BLOOD COUNT 6.61 K/uL (4.8-10.8)
[2017-06-24] MEDS: MoRPHine SULFATE 2 MG/ML CARP IV PRN (20:14)
[2017-06-24 20:17] LABS: COMPLETE YES
[2017-06-24 21:23] LABS: INR 1.1 (0.9-1.1); PROTHROMBIN TIME (PATIENT) 11.8 SECONDS (9.0-12.0)
[2017-06-24] MEDS ORDERED: HEPARIN SOD 5000 UNIT/0.5 ML CARP SQ SCH (22:00)
[2017-06-25] VITALS (9 sets, daily range): BP systolic 116–133; BP diastolic 75–90; PULSE 84–102; TEMP 36.6–38.2; O2SAT 94–98
[2017-06-25] MEDS: MoRPHine SULFATE 2 MG/ML CARP IV PRN (00:10)
[2017-06-25 02:08] LABS: PARTIAL THROMBOPLASTIN RATIO 2.1
[2017-06-25] MEDS: PIPERACILL/TAZOBAC IV 3.375 GM in DEXTROSE 5% 100ML 100 ML IV SCH (02:25)
[2017-06-25] MEDS: ACETAMINOPHEN 325 MG TAB PO PRN ×2 (04:11→13:49)
[2017-06-25 05:30] LABS: HEMATOCRIT 41.2 % (42-52); MEAN CELL VOLUME 83.7 fL (80-100); MEAN CORPUSCULAR HEMOGLOBIN 29.3 pg (25-34); MEAN PLATELET VOLUME 8.9 fL (7.4-10.4); PLATELET COUNT 171 K/uL (130-400); RED BLOOD COUNT 4.92 M/uL (4.7-6.1); WHITE BLOOD COUNT 7.36 K/uL (4.8-10.8)
[2017-06-25 05:55] LABS: PARTIAL THROMBOPLASTIN RATIO 1.9
[2017-06-25 05:56] LABS: CALCIUM 8.1 mg/dl (8.5-10.1); CREATININE 1.3 mg/dl (0.60-1.40); POTASSIUM 3.6 mmol/L (3.5-5.1)
[2017-06-25] MEDS: INSULIN ASPART 100 UNITS/ML 3 ML PEN SC SCH ×4 (07:00→21:00)
[2017-06-25] MEDS: PHENAZOPYRIDINE HCL 200 MG TAB PO SCH ×2 (07:51→21:16)
[2017-06-25] MEDS: TAMSULOSIN HCL 0.4 MG CAP PO SCH (07:52)
--- NOTE | 2017-06-25 09:33 | Progress Note ---
Subjective Date of Service: Jun 25, 2017. Subjective Pt evaluation today including: conversation w/ patient, chart review, lab review Voiding: no voiding problems 71 yo male admitted with fevers s/p left ureteral stent placement. ? UTI White count and Cr remain normal. He was noted to have a fever of 38.2C overnight. Currently afebrile. Discussed with Dr. Sims this morning, pt's UC&S from [facility] is preliminarily negative. He is currently being tx with heparin for PE. The pt reports he feels "1000 times" better this morning. Review of Systems Constitutional: No fever, No chills Respiratory: No shortness of breath Cardiac: No chest pain Abdomen: No pain, No nausea, No vomiting Male : No dysuria, No hematuria Heme: No abnormal bleeding/bruising Objective Vital Signs Date Time Temp Pulse Resp B/P (MAP) Pulse Ox O2 Delivery O2 Flow Rate FiO2 06/25/17 08:09 36.7 91 20 116/90 (99) 96 Room Air 06/25/17 08:00 96 Room Air 06/25/17 04:00 Room Air 06/25/17 03:59 37.1 100 18 132/78 (96) 95 Room Air 06/25/17 00:09 38.2 92 18 124/75 (91) 94 Room Air 06/25/17 00:00 Room Air 06/24/17 20:00 96 Room Air 06/24/17 19:59 37.5 119 22 154/96 (115) 95 Room Air 06/24/17 16:00 96 Room Air 06/24/17 15:27 36.5 118 19 153/94 (113) 95 Room Air 06/24/17 12:00 96 Room Air 06/24/17 11:08 37.4 92 20 126/75 (92) 93 Room Air Physical Exam General Appearance: no apparent distress Eyes: normal inspection ENT: hearing grossly normal Neck: no JVD Respiratory/Chest: no respiratory distress, no accessory muscle use Cardiovascular: no JVD Extremities: normal inspection Neurologic/Psychiatric: alert, normal mood/affect, oriented x 3 Skin: normal color Laboratory Results Last 24 Hours Test 06/24/17 11:09 06/24/17 16:44 06/24/17 19:53 06/24/17 21:38 Bedside Glucose 169 mg/dl 153 mg/dl 198 mg/dl White Blood Count 6.61 K/uL Red Blood Count 5.46 M/uL Hemoglobin 16.0 g/dL Hematocrit 45.7 % Mean Corpuscular Volume 83.7 fL Mean Corpuscular Hemoglobin 29.3 pg Mean Corpuscular Hemoglobin Concent 35.0 g/dl Platelet Count 171 K/uL Mean Platelet Volume 8.7 fL Neutrophils (%) (Auto) 82.8 % Lymphocytes (%) (Auto) 10.4 % Monocytes (%) (Auto) 4.5 % Eosinophils (%) (Auto) 0.0 % Basophils (%) (Auto) 0.5 % Neutrophils # (Auto) 5.47 K/uL Lymphocytes # (Auto) 0.69 K/uL Monocytes # (Auto) 0.30 K/uL Eosinophils # (Auto) 0.00 K/uL Basophils # (Auto) 0.03 K/uL RDW Standard Deviation 39.0 fL RDW Coefficient of Variation 13.0 % Immature Granulocyte % (Auto) 1.8 % Immature Granulocyte # (Auto) 0.12 K/uL Prothrombin Time 11.8 SECONDS Prothromb Time International Ratio 1.1 Activated Partial Thromboplast Time 27.2 SECONDS Partial Thromboplastin Ratio 1.0 Test 06/25/17 01:42 06/25/17 04:42 06/25/17 06:40 Activated Partial Thromboplast Time 55.5 SECONDS 49.9 SECONDS Partial Thromboplastin Ratio 2.1 1.9 White Blood Count 7.36 K/uL Red Blood Count 4.92 M/uL Hemoglobin 14.4 g/dL Hematocrit 41.2 % Mean Corpuscular Volume 83.7 fL Mean Corpuscular Hemoglobin 29.3 pg Mean Corpuscular Hemoglobin Concent 35.0 g/dl RDW Standard Deviation 39.2 fL RDW Coefficient of Variation 13.0 % Platelet Count 171 K/uL Mean Platelet Volume 8.9 fL Sodium Level 135 mmol/L Potassium Level 3.6 mmol/L Chloride Level 106 mmol/L Carbon Dioxide Level 21 mmol/L Anion Gap 8.0 mmol/L Blood Urea Nitrogen 9 mg/dl Creatinine 1.30 mg/dl Est Creatinine Clear Calc Drug Dose 55.6 ml/min Estimated GFR () 63.6 Estimated GFR (Non- 54.9 BUN/Creatinine Ratio 7.0 Random Glucose 166 mg/dl Calcium Level 8.1 mg/dl Bedside Glucose 169 mg/dl Assessment and Plan A/P: Fever, PE, stent irritation, ? UTI AFVSS. Pt s/p left URS/LL on 06-18-17. Continues to have some left flank pain after voiding. We have discussed that this is normal reflux of urine into the stent after stent placement. Fever secondary to ? UTI vs PE. UC&S from [facility] is preliminarily negative. Recommend transitioning him to 10-14 days of Bactrim DS or Cipro prior to d/c home. Management of PE per primary service. Will keep f/u appt on 06-[address] Boyer. Will continue to follow along with primary service. Continued [facility] stay due to: multiple IV medications needed Discharge planning: home
--- NOTE | 2017-06-25 09:34 | Medical Student: [facility] ---
Med Student Progress Note Date of Service Jun 25, 2017. Subjective Pt evaluation today including: conversation w/ patient, physical exam, chart review, lab review, review of studies Voiding: no voiding problems Patient was examined sitting up in bed this morning. He reports feeling "much better and more alert" than yesterday. He was able to sleep through the night. He does still have some left flank pain when he urinates though he denies dysuria. He also denies fever, chills, headache, dizziness, chest pain, palpitations, abdominal pain, nausea, vomiting, diarrhea, numbness/tingling, calf pain. He had questions about the nature of PE/DVT and the expected course. Patient reports that he was very sedentary for about 3 weeks due to pain from his kidney stone. 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 We discussed different anticoagulation options and the r/b/a of each type. All his questions were answered. No other complaints at this time. Review of Systems Constitutional: No fever, No chills, No sweats Eyes: No worsening of vision, No diplopia ENT: No hearing loss, No sore throat, No trouble swallowing Respiratory: No cough, No wheezing, No shortness of breath Cardiac: No chest pain, No palpitations Abdomen: No pain, No nausea, No vomiting, No diarrhea Musculoskeletal: No joint pain, No calf pain Male : + problem reported (left flank pain with urination), No dysuria, No incontinence Neurologic: No paralysis, No weakness, No numbness/tingling Objective Vital Signs Date Time Temp Pulse Resp B/P (MAP) Pulse Ox O2 Delivery O2 Flow Rate FiO2 06/25/17 08:09 36.7 91 20 116/90 (99) 96 Room Air 06/25/17 08:00 96 Room Air 06/25/17 04:00 Room Air 06/25/17 03:59 37.1 100 18 132/78 (96) 95 Room Air 06/25/17 00:09 38.2 92 18 124/75 (91) 94 Room Air 06/25/17 00:00 Room Air 06/24/17 20:00 96 Room Air 06/24/17 19:59 37.5 119 22 154/96 (115) 95 Room Air 8/9/17 16:00 96 Room Air 06/24/17 15:27 36.5 118 19 153/94 (113) 95 Room Air 06/24/17 12:00 96 Room Air 06/24/17 11:08 37.4 92 20 126/75 (92) 93 Room Air Physical Exam General Appearance: WD/WN, no apparent distress Eyes: bilateral eyes normal inspection, bilateral eyes PERRL, bilateral eyes EOMI ENT: normal ENT inspection, hearing grossly normal, pharynx normal Neck: supple, no adenopathy, no carotid bruits Respiratory/Chest: lungs clear, normal breath sounds, no respiratory distress, no accessory muscle use Cardiovascular: no gallop, no murmur, + tachycardia Abdomen: normal bowel sounds, non tender, soft Extremities: normal range of motion, normal inspection, no calf tenderness Neurologic/Psychiatric: no motor/sensory deficits, alert, oriented x 3 Skin: normal color, warm/dry, no rash Lymphatic: no adenopathy Laboratory Results Last 24 Hours Test 06/24/17 11:09 06/24/17 16:44 06/24/17 19:53 06/24/17 21:38 Bedside Glucose 169 mg/dl 153 mg/dl 198 mg/dl White Blood Count 6.61 K/uL Red Blood Count 5.46 M/uL Hemoglobin 16.0 g/dL Hematocrit 45.7 % Mean Corpuscular Volume 83.7 fL Mean Corpuscular Hemoglobin 29.3 pg Mean Corpuscular Hemoglobin Concent 35.0 g/dl Platelet Count 171 K/uL Mean Platelet Volume 8.7 fL Neutrophils (%) (Auto) 82.8 % Lymphocytes (%) (Auto) 10.4 % Monocytes (%) (Auto) 4.5 % Eosinophils (%) (Auto) 0.0 % Basophils (%) (Auto) 0.5 % Neutrophils # (Auto) 5.47 K/uL Lymphocytes # (Auto) 0.69 K/uL Monocytes # (Auto) 0.30 K/uL Eosinophils # (Auto) 0.00 K/uL Basophils # (Auto) 0.03 K/uL RDW Standard Deviation 39.0 fL RDW Coefficient of Variation 13.0 % Immature Granulocyte % (Auto) 1.8 % Immature Granulocyte # (Auto) 0.12 K/uL Prothrombin Time 11.8 SECONDS Prothromb Time International Ratio 1.1 Activated Partial Thromboplast Time 27.2 SECONDS Partial Thromboplastin Ratio 1.0 Test 06/25/17 01:42 06/25/17 04:42 06/25/17 06:40 Activated Partial Thromboplast Time 55.5 SECONDS 49.9 SECONDS Partial Thromboplastin Ratio 2.1 1.9 White Blood Count 7.36 K/uL Red Blood Count 4.92 M/uL Hemoglobin 14.4 g/dL Hematocrit 41.2 % Mean Corpuscular Volume 83.7 fL Mean Corpuscular Hemoglobin 29.3 pg Mean Corpuscular Hemoglobin Concent 35.0 g/dl RDW Standard Deviation 39.2 fL RDW Coefficient of Variation 13.0 % Platelet Count 171 K/uL Mean Platelet Volume 8.9 fL Sodium Level 135 mmol/L Potassium Level 3.6 mmol/L Chloride Level 106 mmol/L Carbon Dioxide Level 21 mmol/L Anion Gap 8.0 mmol/L Blood Urea Nitrogen 9 mg/dl Creatinine 1.30 mg/dl Est Creatinine Clear Calc Drug Dose 55.6 ml/min Estimated GFR () 63.6 Estimated GFR (Non- 54.9 BUN/Creatinine Ratio 7.0 Random Glucose 166 mg/dl Calcium Level 8.1 mg/dl Bedside Glucose 169 mg/dl Assessment and Plan Assessment and Plan: This is a 71yo male who presented 1 week s/p left lithotripsy with ureteral stent placement who presents to [facility] with malaise and suspected UTI/urosepsis. the patient initially presented to [facility] with tachycardia into the 130s. After transfer to [facility] and total of 5L IVF, he remained tachycardic prompting CT chest for PE rule-out. Patient was found to have both bilateral PE and DVTs. Plan: 1. Bilateral PE and DVT -likely provoked by 3+ weeks of immobility with kidney stone and s/p lithotripsy w/ stent placement -remains tachycardic 100 but trending down -continue IV heparin infusion, plan to transition to NOAC xarelto upon d/c -OOB to chair -incentive spirometry -PT/OT eval -PRN Tylenol 650mg PO q4h prn mild pain -PRN oxycodone 5mg PO q4h prn mod pain -PRN morphine IV 2mg q2h prn severe pain -PRN zofran 4mg q6h prn nausea -transfer patient to med/surg as patient no longer needs tele monitoring 2. Possible UTI -cultures from [facility] negative to date -CT scan negative for pyelonephritis and per urology, stent in good place -left flank pain not consistent with UTI and more consistent with post-op stent pain -stop IV Zosyn -start IV Rocephin, plan is to transition to PO Bactrim or Cipro [id number] for d/c -patient has f/u appointment with Urology on 06/30 3. Possible pulmonary hypertension -per CT report, etiology unclear but may be 2/2 to PE or MERLYN -consider outpatient sleep study 4. Type 2 Diabetes Mellitus -HOLD home oral meds -Accuchecks ACHS -basal-bolus insulin with sliding scale 5. Hyperlipidemia -rosuvastatin 10mg PO daily 6. GERD -continue omeprazole 20mg PO daily 7. Diet -carbohydrate consistent diet 8. DVT prophylaxis -on therapeutic heparin infusion 9. Disposition -transfer to med/surg -plan to d/c to home -date: TBD Continued [facility] stay due to: abnormal vital signs, multiple IV medications needed Discharge planning: home
--- NOTE | 2017-06-25 09:56 | Family Medicine Progress Note ---
Progress Note Date of Service Jun 25, 2017. Subjective Pt evaluation today including: conversation w/ patient, physical exam Pain: Improving Voiding: no voiding problems No overnight issues HR coming down. Denies chest pain, palpitations, shortness of breath or orthopnea After diagnosing PE/DVT, patient notes that he was mostly lying on the couch and in bed for the past 3 weeks due to the pain from his kidney stone. 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 States that he does take breaks however. No familial history of clotting. No history of miscarriages in female members of his family. Notes that he never had dysuria. He states abdominal pain in the left flank when urinating but denies any urinary burning. Today notes that he feels much better. Malaise is improving and energy levels are better overall. Additional Comments: A 10 point review of systems was negative unless stated above. Medications Current Inpatient Medications Medications (Trade) Dose Ordered Sig/Aniyah Route Start Time Stop Time Status Last Admin Dose Admin Acetaminophen (Tylenol Tab) 650 mg Q4H PRN PO 06/24/17 03:15 07/24/17 03:14 06/25/17 04:11 650 MG Al Hydrox/Mg Hydrox/Simethicone (Maalox Max Susp) 15 ml Q4H PRN PO 06/24/17 03:15 07/24/17 03:14 Magnesium Hydroxide (Milk Of Magnesia Susp) 30 ml Q12H PRN PO 06/24/17 03:15 07/24/17 03:14 Ondansetron HCl (Zofran Inj) 4 mg Q6H PRN IV 06/24/17 03:15 07/24/17 03:14 06/24/17 21:31 4 MG Polyethylene (Miralax Powder Packet) 17 gm DAILY PRN PO 06/24/17 03:15 07/24/17 03:14 Insulin Aspart (novoLOG ASPART) SLIDING SCALE G... ACHS SC 06/24/17 07:00 07/24/17 06:59 Glucose (Glucose 40% Gel) 15-30 GRAMS 15 GRAMS... UD PRN PO 06/24/17 07:00 07/24/17 06:59 Glucose (Glucose Chew Tab) 4-8 Tablets 4 Tabl... UD PRN PO 06/24/17 07:00 07/24/17 06:59 Dextrose (Dextrose 50% 50ML Syringe) 25-50ML OF 50% DW IV FOR... UD PRN IV 06/24/17 07:00 07/24/17 06:59 Glucagon (Glucagon Inj) 1 mg UD PRN SQ 06/24/17 07:00 07/24/17 06:59 Phenazopyridine HCl (Pyridium Tab) 200 mg BID PO 06/24/17 09:00 07/24/17 08:59 06/25/17 07:51 200 MG Rosuvastatin Calcium (Crestor Tab) 10 mg HS PO 06/24/17 21:00 07/24/17 20:59 06/24/17 20:00 10 MG Tamsulosin HCl (Flomax Cap) 0.4 mg DAILY PO 06/24/17 09:00 07/24/17 08:59 06/25/17 07:52 0.4 MG Miscellaneous Information (Order Awaiting Action) 1 ea QS N/A 06/24/17 08:00 07/24/17 07:59 Pantoprazole Sodium (Protonix Tab) 40 mg QAM PRN PO 06/24/17 09:00 07/24/17 08:59 Oxycodone HCl (Roxicodone Immediate Rel Tab) 5 mg Q4H PRN PO 06/24/17 14:15 07/08/17 14:14 06/24/17 14:17 5 MG Morphine Sulfate (MoRPHine SULFATE INJ) 2 mg Q2H PRN IV 06/24/17 16:00 07/08/17 15:59 06/25/17 00:10 2 MG Potassium Chloride/Sodium Chloride 1,000 ml @ 100 mls/hr Q10H IV 06/24/17 17:45 07/24/17 17:44 Future Hold 06/24/17 17:45 100 MLS/HR Ioversol (Optiray 320) 100 ml UD PRN IV 06/24/17 17:30 06/28/17 17:29 Heparin Sodium/ Dextrose 500 ml @ 27 mls/hr [id number] PRN IV 06/24/17 19:30 07/24/17 19:29 06/24/17 19:52 27 MLS/HR Ceftriaxone Sodium 1 gm/ Dextrose 50 ml @ 100 mls/hr Q24H IV 06/25/17 09:45 07/05/17 09:44 UNV Objective Vital Signs Date Time Temp Pulse Resp B/P (MAP) Pulse Ox O2 Delivery O2 Flow Rate FiO2 06/25/17 08:09 36.7 91 20 116/90 (99) 96 Room Air 06/25/17 08:00 96 Room Air 06/25/17 04:00 Room Air 06/25/17 03:59 37.1 100 18 132/78 (96) 95 Room Air 06/25/17 00:09 38.2 92 18 124/75 (91) 94 Room Air 06/25/17 00:00 Room Air 06/24/17 20:00 96 Room Air 06/24/17 19:59 37.5 119 22 154/96 (115) 95 Room Air 06/24/17 16:00 96 Room Air 06/24/17 15:27 36.5 118 19 153/94 (113) 95 Room Air 06/24/17 12:00 96 Room Air 06/24/17 11:08 37.4 92 20 126/75 (92) 93 Room Air Physical Exam General Appearance: WD/WN, no apparent distress Eyes: normal inspection, EOMI ENT: normal ENT inspection, hearing grossly normal, + nasal congestion Neck: supple, no adenopathy, no JVD Respiratory/Chest: lungs clear, no respiratory distress Cardiovascular: regular rate, rhythm, no gallop, no murmur Abdomen: normal bowel sounds, non tender, soft Extremities: non-tender, no pedal edema Neurologic/Psychiatric: alert, normal mood/affect, oriented x 3 Skin: normal color, warm/dry, no rash Lymphatic: no adenopathy Laboratory Results Last 24 Hours Test 06/24/17 11:09 06/24/17 16:44 06/24/17 19:53 06/24/17 21:38 Bedside Glucose 169 mg/dl 153 mg/dl 198 mg/dl White Blood Count 6.61 K/uL Red Blood Count 5.46 M/uL Hemoglobin 16.0 g/dL Hematocrit 45.7 % Mean Corpuscular Volume 83.7 fL Mean Corpuscular Hemoglobin 29.3 pg Mean Corpuscular Hemoglobin Concent 35.0 g/dl Platelet Count 171 K/uL Mean Platelet Volume 8.7 fL Neutrophils (%) (Auto) 82.8 % Lymphocytes (%) (Auto) 10.4 % Monocytes (%) (Auto) 4.5 % Eosinophils (%) (Auto) 0.0 % Basophils (%) (Auto) 0.5 % Neutrophils # (Auto) 5.47 K/uL Lymphocytes # (Auto) 0.69 K/uL Monocytes # (Auto) 0.30 K/uL Eosinophils # (Auto) 0.00 K/uL Basophils # (Auto) 0.03 K/uL RDW Standard Deviation 39.0 fL RDW Coefficient of Variation 13.0 % Immature Granulocyte % (Auto) 1.8 % Immature Granulocyte # (Auto) 0.12 K/uL Prothrombin Time 11.8 SECONDS Prothromb Time International Ratio 1.1 Activated Partial Thromboplast Time 27.2 SECONDS Partial Thromboplastin Ratio 1.0 Test 06/25/17 01:42 06/25/17 04:42 06/25/17 06:40 Activated Partial Thromboplast Time 55.5 SECONDS 49.9 SECONDS Partial Thromboplastin Ratio 2.1 1.9 White Blood Count 7.36 K/uL Red Blood Count 4.92 M/uL Hemoglobin 14.4 g/dL Hematocrit 41.2 % Mean Corpuscular Volume 83.7 fL Mean Corpuscular Hemoglobin 29.3 pg Mean Corpuscular Hemoglobin Concent 35.0 g/dl RDW Standard Deviation 39.2 fL RDW Coefficient of Variation 13.0 % Platelet Count 171 K/uL Mean Platelet Volume 8.9 fL Sodium Level 135 mmol/L Potassium Level 3.6 mmol/L Chloride Level 106 mmol/L Carbon Dioxide Level 21 mmol/L Anion Gap 8.0 mmol/L Blood Urea Nitrogen 9 mg/dl Creatinine 1.30 mg/dl Est Creatinine Clear Calc Drug Dose 55.6 ml/min Estimated GFR () 63.6 Estimated GFR (Non- 54.9 BUN/Creatinine Ratio 7.0 Random Glucose 166 mg/dl Calcium Level 8.1 mg/dl Bedside Glucose 169 mg/dl Assessment and Plan 71 year old male who presented 1 week s/p cystoscopy with left-lithotrypsy and ureteral stent placement who presents to [facility] with malaise, poor appetite. In [place] the patient was tachycardic at rate of 130s. After transfer to [facility] and total of 5 L, remained tacchycardic so CT was done to evaluate for PE Patient has both bilateral PE and DVTs Based on history, I suspect clinical pictures is more due to PE rather than UTI/ Sepsis Our plan for him is as follows: Bilateral PE and DVT - Provoked; 3 weeks of immobility; unclear if ureter pain precipitated difficulty ambulating or PE prompted generalized sense of malaise - On Heparin infusion Transition to NOAC, Xarelto - Remains tachycardic > 100, but rate is gradually improving Possible Urinary Tract Infection - Cultures from [place] so far negative - UA reviewed from outside records; leukocyte esterase without nitrites RBC, likely due to ureter - CT scan negative for pyelonephritis; per urology, stent in good place - Pain not consistent with UTI and more likely due to expected stent pain - De-escalate antibiotics; stop Zosyn Start Rocephin, if stable after 24 hours will change to oral agent for 10 days - Urology recommendations appreciated - Has F/U with Dr. Boyer in 1 week for stent evaluation - PRN Pain management: Tylenol PRN, Oxycodone PRN and IV Morphine PRN Possible Pulmonary Hypertension - Per CT report; seems due to concurrent bilateral PEs - Consider 2/2 MERLYN based on body habitus and soft tissue of the neck - Will order outpatient sleep study Tachycardia - Reviewed EKG on admission; Sinus Tachycardia with premature supraventricular complexes - Hemodynamically stable - Likely 2/2 PE; see management above; can discontinue monitoring and check HR with routine vitals Hx of Cystoscopy ureteroscopy with Lithotripsy - Urology following - Continue Flomax - Bactrim stopped; on Zosyn for UTI treatment Type 2 Diabetes Mellitus - Hold Home meds - SSI - AC/HS accuchecks GERD - Continue Omeprazole DVT Prophylaxis - On heparin infusion Code Status - Level I Code Disposition - Transfer to Med/Surg - OT/ PT evaluations order due to 3 weeks of weakness Resident Physician Supervision Note: I interviewed and examined the patient. Discussed with Dr. Sims and agree with findings and plan as documented in the note. Any exceptions or clarifications are listed here: None Documented By: Andrei Shook feeling better breathing ok hr coming down. all other ROS otherwise negative except for as above vitals noted nad breathing unlabored no pallor or icterus tachycardia - due to PE PE - heparin --> transition to NOAC; hopefully home tomorrow UTI - with hindsight probably was UTI (complicated due to recent urologic procedure) but with knowledge now of PE, doubt was septic, suspect PE was true reason for admission Continued [facility] stay due to: abnormal vital signs Discharge planning: home
[2017-06-25] MEDS: CEFTRIAXONE SOD INJ 1 GM in DEXTROSE 5% ADD-VANTAGE 50ML 50 ML IV SCH (10:23)
[2017-06-25] MEDS: HEPARIN 25,000 UNIT/500ML D5W 500 ML IV PRN (15:19)
[2017-06-25] MEDS: ROSUVASTATIN CALCIUM 10 MG TAB PO SCH (21:17)
[2017-06-25] MEDS: OXYCODONE HCL IR 5 MG TAB (IMMEDIATE RELEASE) PO PRN (21:35)
[2017-06-26] VITALS: O2SAT 96
[2017-06-26 04:49] LABS: HEMATOCRIT 40.3 % (42-52); MEAN CELL VOLUME 83.4 fL (80-100); MEAN CORPUSCULAR HEMOGLOBIN 29.2 pg (25-34); PLATELET COUNT 166 K/uL (130-400); RED BLOOD COUNT 4.83 M/uL (4.7-6.1); WHITE BLOOD COUNT 6.77 K/uL (4.8-10.8)
[2017-06-26 05:07] LABS: BUN/CREATININE RATIO 9.1 (10-20); CALCIUM 8.2 mg/dl (8.5-10.1); CREATININE 1.1 mg/dl (0.60-1.40); PARTIAL THROMBOPLASTIN RATIO 1.6; POTASSIUM 3.7 mmol/L (3.5-5.1)
[2017-06-26] MEDS ORDERED: HEPARIN IV BOLUS 3,000 UNIT in SYRINGE 0 ML IV STA (05:33)
[2017-06-26] MEDS: INSULIN ASPART 100 UNITS/ML 3 ML PEN SC SCH (06:30)
[2017-06-26 07:11] VITALS: BP 127/85; PULSE 77; TEMP 37.1; O2SAT 94
--- NOTE | 2017-06-26 07:35 | Medical Student: [facility] ---
Med Student Progress Note Date of Service Jun 26, 2017. Subjective Pt evaluation today including: conversation w/ patient, physical exam, chart review, lab review, review of studies Voiding: no voiding problems Patient examined sitting at edge of bed this morning. He reports feeling well with no fever, chills, chest pain, palpitation, shortness of breath, dysuria or calf pain. He is able to ambulate with no issues. He is eager to go home. Discussed his discharge medications and answered all of his questions. No other issues at this time. Review of Systems Constitutional: No fever, No chills Eyes: No worsening of vision, No diplopia ENT: No sore throat, No trouble swallowing Respiratory: No cough, No shortness of breath Cardiac: No chest pain, No palpitations Abdomen: No pain, No nausea, No vomiting, No diarrhea Musculoskeletal: No joint pain, No calf pain Male : No dysuria, No incontinence Heme: No abnormal bleeding/bruising, No night sweats Skin: No rash, No itch Objective Vital Signs Date Time Temp Pulse Resp B/P (MAP) Pulse Ox O2 Delivery O2 Flow Rate FiO2 06/26/17 07:11 37.1 77 20 127/85 (99) 94 06/26/17 00:00 96 Room Air 06/25/17 23:36 36.8 84 18 133/84 (100) 96 Room Air 06/25/17 20:50 36.9 86 18 118/76 (90) 95 Room Air 06/25/17 18:15 Room Air 06/25/17 14:48 37.0 91 20 119/78 (92) 94 06/25/17 10:37 36.6 102 18 125/79 (94) 98 Room Air 06/25/17 10:30 36.7 91 20 96 06/25/17 08:09 36.7 91 20 116/90 (99) 96 Room Air 06/25/17 08:00 96 Room Air Physical Exam General Appearance: WD/WN, no apparent distress Eyes: bilateral eyes normal inspection, bilateral eyes PERRL, bilateral eyes EOMI ENT: normal ENT inspection, hearing grossly normal, pharynx normal Neck: supple, no adenopathy, no carotid bruits Respiratory/Chest: lungs clear, normal breath sounds, no respiratory distress, no accessory muscle use Cardiovascular: regular rate, rhythm, no gallop, no murmur Abdomen: normal bowel sounds, non tender, soft Extremities: normal range of motion, non-tender, normal inspection, no calf tenderness Neurologic/Psychiatric: alert, normal mood/affect, oriented x 3 Skin: normal color, warm/dry, no rash Lymphatic: no adenopathy Laboratory Results Last 24 Hours Test 06/25/17 11:11 06/25/17 16:15 06/25/17 20:46 06/25/17 23:10 Bedside Glucose 161 mg/dl 165 mg/dl 158 mg/dl Stool Occult Blood NEGATIVE Test 06/26/17 04:35 06/26/17 07:21 White Blood Count 6.77 K/uL Red Blood Count 4.83 M/uL Hemoglobin 14.1 g/dL Hematocrit 40.3 % Mean Corpuscular Volume 83.4 fL Mean Corpuscular Hemoglobin 29.2 pg Mean Corpuscular Hemoglobin Concent 35.0 g/dl RDW Standard Deviation 39.4 fL RDW Coefficient of Variation 13.0 % Platelet Count 166 K/uL Mean Platelet Volume 9.0 fL Activated Partial Thromboplast Time 41.6 SECONDS Partial Thromboplastin Ratio 1.6 Sodium Level 138 mmol/L Potassium Level 3.7 mmol/L Chloride Level 109 mmol/L Carbon Dioxide Level 22 mmol/L Anion Gap 7.0 mmol/L Blood Urea Nitrogen 10 mg/dl Creatinine 1.10 mg/dl Est Creatinine Clear Calc Drug Dose 65.5 ml/min Estimated GFR () 77.9 Estimated GFR (Non- 67.2 BUN/Creatinine Ratio 9.1 Random Glucose 142 mg/dl Calcium Level 8.2 mg/dl Bedside Glucose 159 mg/dl Assessment and Plan Assessment and Plan: This is a pleasant 71yo male who presented 1 week s/p left lithotripsy with ureteral stent placement who presents to [facility] with malaise and suspected UTI/ urosepsis. The patient initially presented to [facility] with tachycardia into the 130s. After transfer to [facility] and total of 5L IVF, he remained tachycardic prompting CT chest for PE rule-out. Patient was found to have both bilateral PE and DVTs. Plan: 1. Bilateral PE and DVT -likely provoked by 3+ weeks of immobility with kidney stone and s/p lithotripsy w/ stent placement -tachycardia resolved with pulse 77 this morning -started PO xarelto 15mg PO BID this morning, with instructions and education on how to continue on this medication: 15mg PO BID for 3 weeks, 20mg PO daily after that, education provided on potential side effects and what to do in the event of abnormal bleeding, patient is in understanding and agrees with the plan -stopped IV heparin infusion -OOB to chair -incentive spirometry -PRN Tylenol 650mg PO q4h prn mild pain -PRN oxycodone 5mg PO q4h prn mod pain -PRN morphine IV 2mg q2h prn severe pain -PRN zofran 4mg q6h prn nausea -patient is stable for discharge at this time 2. Possible UTI -urine and blood cultures from [facility] negative to date -CT scan negative for pyelonephritis and per urology, stent in good place -left flank pain not consistent with UTI and more consistent with post-op stent pain -d/c on PO cipro 250mg PO BID x5days (total of 8 days IV+PO abx: zosyn and rocephin) -patient has f/u appointment with Urology on 06/30 3. Possible pulmonary hypertension -per CT report, etiology unclear but may be 2/2 to PE or MERLYN -consider outpatient sleep study 4. Type 2 Diabetes Mellitus -restart home oral meds 5. Hyperlipidemia -rosuvastatin 10mg PO daily 6. GERD -continue omeprazole 20mg PO daily 7. Diet -carbohydrate consistent diet 8. DVT prophylaxis -on therapeutic heparin infusion 9. Disposition -location: home -date: 06/26/17 Continued [facility] stay due to: abnormal vital signs Discharge planning: home
[2017-06-26 08:00] VITALS: O2SAT 94
--- NOTE | 2017-06-26 08:01 | Discharge Summary ---
Discharge Summary Date of Service Jun 26, 2017. Discharge Summary Admission Date: Jun 24, 2017 at 03:14 Immunizations: Have You Had Influenza Vaccine: Unknown History of Tetanus Vaccine?: Unknown History of Pneumococcal: Unknown History of Hepatitis B Vaccine: Unknown Hospital Course 71 year old male who presented 1 week s/p cystoscopy with left-lithotrypsy and ureteral stent placement who presents to [facility] with malaise, poor appetite. In [place] the patient was tachycardic at rate of 130s. After transfer to [facility] and total of 5 L of fluid, remained tacchycardic so CT was done to evaluate for PE. Evidence for both bilateral PE and DVTs. Our plan for him is as follows: Bilateral PE and DVT - Provoked; 3 weeks of immobility; unclear if ureter pain precipitated difficulty ambulating or PE prompted generalized sense of malaise - On Heparin infusion Transition to NOAC, Xarelto - Remained tachycardic > 100, but rate gradually improved. - Possible Urinary Tract Infection - Cultures from [place] so far negative - UA reviewed from outside records; leukocyte esterase without nitrites RBC, likely due to ureter - CT scan negative for pyelonephritis; per urology, stent in good place - Pain not consistent with UTI and more likely due to expected stent pain - De-escalate antibiotics; stop Zosyn Start Rocephin, if stable after 24 hours will change to oral agent for 10 days - PO regimen - Urology recommendations appreciated - Has F/U with Dr. Boyer in 1 week for stent evaluation. - PRN Pain management given: Tylenol PRN, Oxycodone PRN and IV Morphine PRN Possible Pulmonary Hypertension - Per CT report; seems due to concurrent bilateral PEs - Consider 2/2 MERLYN based on body habitus and soft tissue of the neck - Will order outpatient sleep study. Tachycardia - Reviewed EKG on admission; Sinus Tachycardia with premature supraventricular complexes - Likely 2/2 PE; see management above; can discontinue monitoring and check HR with routine vitals - Hemodynamically stable Hx of Cystoscopy ureteroscopy with Lithotripsy - Urology following - Continue Flomax - Bactrim stopped; on Zosyn for UTI treatment - PO: Type 2 Diabetes Mellitus - Held Home meds - SSI - Performed AC/HS accuchecks - Restart Metformin upon DC GERD - Continue Omeprazole DVT Prophylaxis - On heparin infusion Code Status - Level I Code Disposition - Transfer to [facility]/Surg - OT/ PT evaluations ordered due to 3 weeks of weakness Total Time Spent: Greater than 30 minutes This includes examination of the patient, discharge planning, medication reconciliation, and communication with other providers. Discharge Instructions Please refer to the electronic Patient Visit Report (Discharge Instructions) for additional information.
[2017-06-26] MEDS: PHENAZOPYRIDINE HCL 200 MG TAB PO SCH (08:05)
[2017-06-26] MEDS: TAMSULOSIN HCL 0.4 MG CAP PO SCH (08:06)
[2017-06-26] MEDS ORDERED: RIVAROXABAN TAB 15 MG TAB PO ONE (09:15)
[2017-06-26] MEDS ORDERED: CIPR250T3 PO (10:01)
[2017-06-26] MEDS ORDERED: XRL15 PO (10:01)
[2017-06-26] MEDS ORDERED: RIVA1TAB4 PO (10:01)
[2017-06-26] MEDS: CEFTRIAXONE SOD INJ 1 GM in DEXTROSE 5% ADD-VANTAGE 50ML 50 ML IV SCH (10:12)
--- NOTE | 2017-06-26 10:44 | Discharge Instructions ---
Discharge Instructions Date of Service Jun 26, 2017. Admission Reason for Admission: pulmonary embolism VTE Date & Time Date of VTE Diagnosis: Jun 24, 2017 Time of VTE Diagnosis: 17:05 Discharge Goals Goal(s): Diagnostic testing, Therapeutic intervention Activity Recommendations Activity Limitations: resume your previous activity . Instructions / Follow-Up Instructions / Follow-Up Pulmonary embolism Blood clots were found in your lungs and legs. You were treated with IV blood thinners in the hospital but have been discharged with oral blood thinners ( Xarelto). Please take 15mg of Xarelto by mouth starting at 8pm on 06/26/17. Starting on 06/27/17, please take 15mg of Xarelto twice a day, every day, for a total of 20 days. From then on, you will need to take 20mg of Xarelto once a day. Being on a blood thinner There is a small risk of bleeding while on a blood-thinning medication. The most common forms of bleeding are nosebleeds and increased bleeding from cuts and bruises. If you develop any bleeding, try to hold pressure on the wound for 10 minutes. If the bleeding does not stop in 10 minutes, go to the Emergency Department so they can stop the bleeding. More serious bleeding may occur such as coughing up blood, bleeding in your gastrointestinal system, and stroke. If you notice black stools, stroke symptoms or coughing up blood, go immediately to the Emergency Department. The risk of these complications is very low, but we want you to be aware of them. Urinary tract infection and stenting You were treated in the hospital with IV antibiotics as your risk of infection is increased following your surgery and stent placement. You are being discharged with five days of the oral antibiotic ciprofloxacin. Please take one tablet (250mg) twice a day.You have a follow-up appointment with your urologist on 06/30/17. If you develop any fever, chills, or pain with urination please go see your PCP. Medication Instructions: Your condition is typically treated with an anticoagulant. Anticoagulants will thin your blood to help prevent new clots. * You should take her medication exactly as directed. * Never skip a dose. * Never take a double dose. If you miss a dose, take it as soon as you remember. Call your Primary Care doctor if you experience any of the following: * Swelling or Pain in your leg * Sudden, continuous pain deep in a muscle * Pain that worsens when you are active or when you stand still for a long time * Chest Pain * Sudden Shortness of Breath * Rapid or pounding heart beat * Fainting * Dizziness * Cough with blood or bloody sputum * Sweating more than normal * Bruises * Heavy or uncontrolled bleeding * Blood in your urine, stool or vomit * Black or tarry stools Caring for Your Self at Home: * Avoid sitting, standing or lying down for long periods without moving your legs and feet * When traveling by car, stop to get out and move around at least once every 3 hours * On long airplane, train or bus rides, get up and move around when possible * If you can't get up, wiggle your toes and tighten your calves to keep your blood moving Follow Up: It is important for you to keep your follow up appointments with your medical provider. Current Hospital Diet Patient's current hospital diet: Diabetes Type 2 Diet Discharge Diet Recommended Diet: Diabetes Type 2 Diet Pending Studies Studies pending at discharge: no Medical Emergencies . Who to Call and When: Medical Emergencies: If at any time you feel your situation is an emergency, please call 911 immediately. . Non-Emergent Contact Non-Emergency issues call your: Primary Care Provider, Urologist . . "Provider Documentation" section prepared by Andrei Shook. . VTE Core Measure Inpt VTE Proph given/why not?: Other Anticoagulation, SCD's
[2017-06-26 10:53] VITALS: BP 127/85; PULSE 77; TEMP 37.1; O2SAT 94
--- NOTE | 2017-06-26 11:22 | Progress Note ---
Subjective Date of Service: Jun 26, 2017. Subjective Pt evaluation today including: conversation w/ patient Voiding: no voiding problems 71 year old male s/p left ureteral stent and URS w/ LL with urosepsis. pt doing much better. Tolerating stent ok OOB ambulating. Tolerating diet. labs unremarkable. Treated for PE/DVT per primary service. Review of Systems Constitutional: No fever, No chills ENT: No hearing loss Respiratory: No cough, No shortness of breath Cardiac: No chest pain Abdomen: + see HPI, No pain, No nausea Male : No dysuria Psychiatric: No depression symptoms Heme: No abnormal bleeding/bruising Endo: No fatigue Objective Vital Signs Date Time Temp Pulse Resp B/P (MAP) Pulse Ox O2 Delivery O2 Flow Rate FiO2 06/26/17 10:53 37.1 77 20 94 Room Air 06/26/17 08:00 94 Room Air 06/26/17 07:11 37.1 77 20 127/85 (99) 94 06/26/17 00:00 96 Room Air 06/25/17 23:36 36.8 84 18 133/84 (100) 96 Room Air 06/25/17 20:50 36.9 86 18 118/76 (90) 95 Room Air 06/25/17 18:15 Room Air 06/25/17 14:48 37.0 91 20 119/78 (92) 94 Physical Exam General Appearance: WD/WN, no apparent distress ENT: hearing grossly normal Respiratory/Chest: no respiratory distress, no accessory muscle use Abdomen: soft Neurologic/Psychiatric: alert, normal mood/affect, oriented x 3 Laboratory Results Last 24 Hours Test 06/25/17 16:15 06/25/17 20:46 06/25/17 23:10 06/26/17 04:35 Bedside Glucose 165 mg/dl 158 mg/dl Stool Occult Blood NEGATIVE White Blood Count 6.77 K/uL Red Blood Count 4.83 M/uL Hemoglobin 14.1 g/dL Hematocrit 40.3 % Mean Corpuscular Volume 83.4 fL Mean Corpuscular Hemoglobin 29.2 pg Mean Corpuscular Hemoglobin Concent 35.0 g/dl RDW Standard Deviation 39.4 fL RDW Coefficient of Variation 13.0 % Platelet Count 166 K/uL Mean Platelet Volume 9.0 fL Activated Partial Thromboplast Time 41.6 SECONDS Partial Thromboplastin Ratio 1.6 Sodium Level 138 mmol/L Potassium Level 3.7 mmol/L Chloride Level 109 mmol/L Carbon Dioxide Level 22 mmol/L Anion Gap 7.0 mmol/L Blood Urea Nitrogen 10 mg/dl Creatinine 1.10 mg/dl Est Creatinine Clear Calc Drug Dose 65.5 ml/min Estimated GFR () 77.9 Estimated GFR (Non- 67.2 BUN/Creatinine Ratio 9.1 Random Glucose 142 mg/dl Calcium Level 8.2 mg/dl Test 06/26/17 07:21 Bedside Glucose 159 mg/dl Assessment and Plan Urosepsis Doing much better. Pt to be discharged home today per primary service. Started on Cipro 250 mg BID for UTI He will keep his follow up appt with Dr. Boyer next week on 06/30/17 Thanks for allowing us to participate in the care of this pt. Continued [facility] stay due to: abnormal vital signs Discharge planning: home
--- NOTE | 2017-06-26 13:37 | Discharge Summary ---
Discharge Summary Date of Service Jun 26, 2017. Discharge Summary Admission Date: Jun 24, 2017 at 03:14 Discharge Date: Jun 26, 2017 Discharge Disposition: Home Principal Diagnosis: PE (after further review, did not have uti-sepsis as main cause) Immunizations: Have You Had Influenza Vaccine: Unknown History of Tetanus Vaccine?: Unknown History of Pneumococcal: Unknown History of Hepatitis B Vaccine: Unknown Procedures: (CHEST FOR PE) ANGIO WITH CT DOSE: 480.61 mGy.cm HISTORY: 71 years-old Male presents with acute shortness of breath and chest pain. Concern for pulmonary embolus. TECHNIQUE: Multiple CTA images of the chest were obtained after the intravenous administration of 116 ml Optiray 320. Coronal and sagittal MIPS were obtained from the axial data set and were submitted for review. A dose lowering technique was utilized adhering to the principles of ALARA. COMPARISON: CT abdomen and pelvis of same day. FINDINGS: CTA: Heart is normal in size without pericardial effusion. Coronary arterial calcifications are noted. Imaged proximal great vessels are patent. There is no aortic dissection or aneurysm. There is mild degree of mixed plaquing of the aorta. There is dilation of the main pulmonary artery, 3.4 cm suggesting underlying pulmonary arterial hypertension. Bilateral pulmonary emboli are noted, notably within the proximal segmental branches of the right lower lobe extending into the subsegmental branches. Additionally, pulmonary emboli are seen within the right upper lobe are and segmental branches. Additional pulmonary emboli are seen within lobar and segmental branches of the lingula and left lower lobe. There is no evidence of associated right heart strain. CT CHEST: No thyroid nodule identified. No pathologic adenopathy by CT size criteria. There is no pneumothorax, pleural effusion or large pulmonary infarction. Linear bibasilar opacities suggest atelectasis. Central airways are patent. Low attenuating 1.4 x 0.8 cm lesion of the left adrenal gland suggests adenoma. There is a small diverticulum of the duodenum. Soft tissues are within normal limits. The bones appear intact with multilevel endplate spurring. IMPRESSION: 1. Extensive bilateral pulmonary emboli involving lobar, segmental and subsegmental branches. No associated evidence of right heart strain or large pulmonary infarction. 2. Mild dilation of the main pulmonary artery suggests underlying pulmonary arterial hypertension. The above report was generated using voice recognition software. It may contain grammatical, syntax or spelling errors. Electronically signed by: Shaka Shepard M.D. 06/24/2017 6:16 PM Dictated Date/Time: 06/24/2017 6:08 PM ULTRASOUND VENOUS DOPPLER LWR EXT BILA CLINICAL HISTORY: Bilateral pulmonary embolism COMPARISON STUDY: None FINDINGS: On the right, there is popliteal peroneal and posterior tibial DVT. On the left, there is popliteal and peroneal vein DVT. No thrombus is visualized within the superficial femoral or common femoral veins. IMPRESSION: Acute bilateral DVT. Electronically signed by: Audie Davidson M.D. 06/24/2017 7:46 PM Dictated Date/Time: 06/24/2017 7:44 PM ABD/PELVIS WITHOUT FOR STONE CT DOSE: 1283.68 mGy.cm HISTORY: Pain. Fever. sepsis s/p L stent s/p Lithotripsy TECHNIQUE: Multiaxial CT images of the abdomen and pelvis were performed without the use of intravenous and oral contrast according to the standard department stone protocol. A dose lowering technique was utilized adhering to the principles of ALARA. COMPARISON STUDY: None. FINDINGS: Minimal atelectasis left base. Configuration of liver spleen and pancreas is unremarkable. No evidence for gallbladder distention. Left ureteral stent in good position. Moderate fullness left and to a lesser extent right renal pelvis. 1 mm calcification immediately adjacent to the stent mid left ureter transaxial image 101. No significant perirenal infiltrative or collection-type change. Nonobstructive bowel pattern. Prior rectosigmoid anastomosis. Bladder is midline. Scattered colonic diverticulosis with no evidence for diverticulitis. IMPRESSION: 1. Left ureteral stent in good position. 2. Probable 1 mm calculus mid left ureter. 3. No evidence for abscess or collection. 4. Nonobstructive bowel pattern. The above report was generated using voice recognition software. It may contain grammatical, syntax or spelling errors. Electronically signed by: Vazquez Garcia M.D. 06/24/2017 7:04 AM Last 24 Hours Test 06/25/17 16:15 06/25/17 20:46 06/25/17 23:10 06/26/17 04:35 Bedside Glucose 165 mg/dl 158 mg/dl Stool Occult Blood NEGATIVE White Blood Count 6.77 K/uL Red Blood Count 4.83 M/uL Hemoglobin 14.1 g/dL Hematocrit 40.3 % Mean Corpuscular Volume 83.4 fL Mean Corpuscular Hemoglobin 29.2 pg Mean Corpuscular Hemoglobin Concent 35.0 g/dl RDW Standard Deviation 39.4 fL RDW Coefficient of Variation 13.0 % Platelet Count 166 K/uL Mean Platelet Volume 9.0 fL Activated Partial Thromboplast Time 41.6 SECONDS Partial Thromboplastin Ratio 1.6 Sodium Level 138 mmol/L Potassium Level 3.7 mmol/L Chloride Level 109 mmol/L Carbon Dioxide Level 22 mmol/L Anion Gap 7.0 mmol/L Blood Urea Nitrogen 10 mg/dl Creatinine 1.10 mg/dl Est Creatinine Clear Calc Drug Dose 65.5 ml/min Estimated GFR () 77.9 Estimated GFR (Non- 67.2 BUN/Creatinine Ratio 9.1 Random Glucose 142 mg/dl Calcium Level 8.2 mg/dl Test 06/26/17 07:21 06/26/17 11:16 Bedside Glucose 159 mg/dl 160 mg/dl Consultations: urology Medication Reconciliation New Medications: Ciprofloxacin (Cipro) 250 Mg Tab 1 TAB PO BID for 5 Days, #10 TAB Rivaroxaban (Xarelto) 15 Mg Tab 1 TAB PO BID, #42 TABS Rivaroxaban (Xarelto) 20 Mg Tab 20 MG PO DAILY, #30 TABS Continued Medications: Calcium W/ Magnesium (Calcium Magnesium 750) 1 Tab Tab 1 TAB PO QAM Metformin Hcl (Glucophage) 500 Mg Tab 500 MG PO QPM, TAB Omeprazole (Prilosec) 20 Mg Capcr 20 MG PO PRN, CAP Oxycodone/Acetaminophen 7.5MG/325MG (Percocet 7.5MG/325MG) Tab 1 TAB PO Q4H PRN for Pain, #30 TAB PRN PAIN Phenazopyridine Hcl (Pyridium) 200 Mg Tab 200 MG PO BID, #10 TAB Rosuvastatin Calcium (Crestor) 10 Mg Tab 10 MG PO HS, TAB Tamsulosin Hcl (Flomax) 0.4 Mg Cap 0.4 MG PO DAILY, CAP [[place]] () 1 TAB PO PRN Discontinued Medications: Sulfamethoxazole-Trimethoprim (Bactrim Ds 800MG/160MG) 1 Tab Tab 1 TAB PO BID, #6 TAB Discharge Exam Physical Exam: General Appearance: no apparent distress Eyes: EOMI ENT: hearing grossly normal Neck: trachea midline Respiratory/Chest: no respiratory distress, no accessory muscle use Extremities: normal inspection Neurologic/Psychiatric: second vp hr assessment II-XII nml as tested, alert, normal mood/affect Skin: normal color, warm/dry Hospital Course admitted as a transfer from [place] appearing septic - had recent cysto and stenting - concern on UTI w sepsis. after initial stabilization, was found to be tachycardic far disproportionate to what should be going on for sepsis (ie his BP was normalized, he had no significant SIRS criteria otherwise, but remained significantly tachycardic) -- PE sought and b/l PE's found. initiated on heparin gtt stabilized quickly and HR improved. after extensive discussions transitioned to PO anticoagulation with xarelto. stable for home today, f/u PCP next week regarding PEs and urology next week for hopeful stent removal PE -likely provoked from being so sedentary during issues w UTI/stone/stent -stabilized on heparin --> transition to xarelto -stable for home -anticipate ~3 months anticoagulation pending further improvement and f/u w PCP -discussed aggressive secondary prevention UTI -after further review was not septic from UTI, but with urinary sx and recent instrumentation, more "simple" version of complicated UTI (would still be complicated due to instrumentation, stenting and male UTI) appeared more likely -finish out course of abx w cipro -sees urology 06/30, abx set to continue through 07/01 unless able to stop sooner at outpt f/u Total Time Spent: Greater than 30 minutes This includes examination of the patient, discharge planning, medication reconciliation, and communication with other providers. Discharge Instructions Please refer to the electronic Patient Visit Report (Discharge Instructions) for additional information. Additional Copies To Carlos Reaves D.O.; Castillo Bonilla MD, Urology
--- NOTE | 2017-08-17 17:27 | EDITING REQUIRED CODING QUERY ---
Dear Dr. Brady, Your help is needed for correct coding of this account; please clarify if the patients Post-operative Ileus was: ( ) expected out of the surgery ( ) unexpected complication from the surgery ( ) other please specify Thank you for your time. HAZEL Correa I believe this query may be submitted on the wrong patient. I don't recall Mr Clarke having an ileus, and reviewed all progress notes from his admission to discharge to see if there was something I may have missed, but did not see any mention of ileus. Thank you.
== END 2017-06-26 11:40 | disposition home or self-care (01) | DRG 176 ==
LOC: C.2E 03:14 → ENRESERV 06-25 09:44 → C.4E 06-25 10:32
PROVIDERS: ADMIT Hospitalist; ATTEND Family Medicine
DX: I26.99 Other pulmonary embolism without acute cor pulmonale (principal); I82.409 Acute embolism and thrombosis of unspecified deep veins of unspecified lower extremity; N39.0 Urinary tract infection, site not specified; I27.0 Primary pulmonary hypertension; Z96.0 Presence of urogenital implants; R00.0 Tachycardia, unspecified; E11.9 Type 2 diabetes mellitus without complications; K21.9 Gastro-esophageal reflux disease without esophagitis; E78.5 Hyperlipidemia, unspecified; Z79.84 Long term (current) use of oral hypoglycemic drugs; Z79.899 Other long term (current) drug therapy; Z79.891 Long term (current) use of opiate analgesic

== ENCOUNTER → 2017-06-30 | Outpatient (CLI) | payer OTHER ==
[~2017-06-30] MED LIST changes: +CIPR250T3 PO; -PHEN-775 PO; +RIVA1TAB4 PO; -SULF800T23 PO; +XRL15 PO
--- NOTE | 2017-06-30 09:52 | DIAGNOSTIC IMAGING REPORT ---
KUB HISTORY: N20.0 Calculus of kidney BE DONE EITHER THE NIGHT BEFORE OR MO COMPARISON: Abdomen and pelvis CT 06/24/2017. FINDINGS: The bowel gas pattern is unremarkable. There are no dilated loops of small bowel to suggest an obstruction. Interval placement of left ureteral stent. There is a punctate stone within the lower pole of the left kidney, unchanged. No right renal calculi. No ureteral calculi identified. No pneumoperitoneum or pneumatosis. IMPRESSION: 1. Interval placement of a left ureteral stent which appears be in good position. 2. No ureteral calculus identified. 3. Left-sided nephrolithiasis, unchanged. Electronically signed by: Jose Eduardo Contreras M.D. 06/30/2017 9:51 AM Dictated Date/Time: 06/30/2017 9:49 AM
== END | disposition home or self-care (01) ==
LOC: C.RAD 09:11
PROVIDERS: ATTEND Urology
DX: N20.0 Calculus of kidney (principal)

== ENCOUNTER → 2017-08-03 | Outpatient (CLI) | payer OTHER ==
[~2017-08-03] MED LIST changes: -CIPR250T3 PO; +OPTIRAY 300 IV PRN
--- NOTE | 2017-08-03 14:23 | DIAGNOSTIC IMAGING REPORT ---
IVP W/OR W/O TOMOGRAMS CLINICAL HISTORY: N20.0 Calculus of [id number] Renal failure nephrocalcinosis COMPARISON STUDY: 06/30/2017 FINDINGS: Interval removal of the patient's left ureteral stent. Nonobstructive bowel pattern. Several small and a punctate left renal calcifications unchanged. Study is performed following the administration of 100 cc nonionic contrast. Prompt opacification of the upper urinary tracts. Tomographic sections are negative for mass or necrosis. Ureters normal in course and caliber. There is minimal bladder wall trabeculation. There is no significant post void residual. There are no obstructive characteristics. IMPRESSION: 1. Several small nonobstructing left renal calcifications. 2. Study is otherwise negative with no evidence for an obstructive process. 3. No evidence for obstruction The above report was generated using voice recognition software. It may contain grammatical, syntax or spelling errors. Electronically signed by: Vazquez Garcia M.D. 08/03/2017 2:22 PM Dictated Date/Time: 08/03/2017 2:20 PM
== END | disposition home or self-care (01) ==
LOC: C.RAD 12:24
PROVIDERS: ATTEND Urology
DX: N19 Unspecified kidney failure (principal); N20.0 Calculus of kidney

== ENCOUNTER → 2017-08-05 | Outpatient (CLI) | payer OTHER ==
[~2017-08-05] MED LIST changes: -OPTIRAY 300 IV PRN
[2017-08-05 13:42] LABS: BLOOD UREA NITROGEN 24 mg/dl (7-18)
== END | disposition home or self-care (01) ==
LOC: C.LAB 11:54
PROVIDERS: ATTEND Urology
DX: N19 Unspecified kidney failure (principal)

== ENCOUNTER → 2017-08-11 | Outpatient (CLI) | payer OTHER | END | disposition home or self-care (01) | LOC: C.LABSPEC 16:47 | PROVIDERS: ATTEND Urology | DX: N40.1 Benign prostatic hyperplasia with lower urinary tract symptoms (principal) ==

== ENCOUNTER → 2018-01-18 | Outpatient (CLI) | payer OTHER ==
--- NOTE | 2018-01-18 15:32 | DIAGNOSTIC IMAGING REPORT ---
KUB HISTORY: N20.0 Calculus of [id number] E-coli UTIA41.9 Sepsis secondary t COMPARISON: IVP 08/03/2017, KUB 06/30/2017, CT abdomen and pelvis 06/24/2017 FINDINGS: The bowel gas pattern is non-obstructive. Surgical suture material the central pelvis is noted compatible with prior postoperative changes of the sigmoid colon.. Calcifications of the prostate. There is no organomegaly. Left-sided nephrolithiasis redemonstrated with calculi measuring up to 3 mm. No definite right-sided nephrolithiasis or ureteral calculi identified. Calcifications of the pelvis suggest phleboliths. No pneumoperitoneum or pneumatosis. No fracture. IMPRESSION: Left-sided nephrolithiasis without ureteral calculi identified. Electronically signed by: Shaka Shepard M.D. 01/18/2018 3:30 PM Dictated Date/Time: 01/18/2018 3:28 PM
[2018-01-18 16:09] LABS: BLOOD UREA NITROGEN 19 mg/dl (7-18); CREATININE 1.25 mg/dl (0.60-1.40)
== END | disposition home or self-care (01) ==
LOC: C.RAD 14:28
PROVIDERS: ATTEND Urology
DX: A41.9 Sepsis, unspecified organism (principal); N19 Unspecified kidney failure; N20.0 Calculus of kidney; N39.0 Urinary tract infection, site not specified; N40.1 Benign prostatic hyperplasia with lower urinary tract symptoms; N39.41 Urge incontinence